=== PATIENT | female | born 1980 | race Caucasian/White ===

== ENCOUNTER → 2018-12-08 | Outpatient (CLI) | payer BC ==
--- NOTE | 2018-12-08 17:38 | Diagnostic Imaging Report ---
PROCEDURE: US Non-ob pelvis comp/trans. TECHNIQUE: Multiple realtime grayscale images were obtained of the pelvis in various projections endovaginally. Transabdominal imaging was also performed. INDICATION: Irregular periods. COMPARISON: None available. FINDINGS: The uterus measures 7.6 x 4.4 x 4.2 cm. The myometrium is normal in echogenicity without discrete mass. The endometrium measures up to 0.3 cm where visualized, and is normal in echogenicity. The right ovary measures 5.0 x 6.8 x 6.7 cm. The left ovary measures 3.0 x 3.1 x 1.1 cm. There is a large simple cyst within the right ovary measuring 5.4 x 6.1 x 6.8 cm. No left ovarian cyst or mass. Blood flow is seen in both ovaries on color doppler imaging. No suspicious adnexal mass or fluid collection. No free pelvic fluid. IMPRESSION: 1. Physiologic appearance of the endometrium. 2. Large right ovarian cyst measures up to 6.8 cm. While this may represent a dominant follicle, given the large size, followup pelvic ultrasound in six weeks is recommended to ensure resolution. Dictated by: Dictated on workstation # [id number]
--- NOTE | 2018-12-13 11:30 | Diagnostic Imaging Report ---
EXAMINATION: Digital mammogram bilateral screening with 3D tomosynthesis and CAD. INDICATION: Screening. COMPARISON: This study was compared to the prior exam of 10/23/2014. PERSONAL HISTORY: At this time, there are no current complaints. FINDINGS: In the interval since the prior exam, bilateral breast implants have been inserted. The implants appear to be intact. There is no sign of an extracapsular rupture of either implant. The fibroglandular tissue overlying each implant is heterogeneously dense. Overall, there does not appear to have been any significant change. There is no primary or secondary sign of malignancy noted. IMPRESSION: 1. There is no evidence for malignancy. 2. There has been interval insertion of bilateral breast implants. The implants appear to be intact. 3. The patient should have her annual bilateral screening mammogram on schedule in December 2019. ACR BI-RADS Category 1: Negative. Result letter will be mailed to the patient. Note: At least 10% of breast cancer is not imaged by mammography. Dictated by: Dictated on workstation # [id number]
== END ==
LOC: RAD 14:56
PROVIDERS: ATTEND Nurse Practitioner Family
DX: Z12.31 Encounter for screening mammogram for malignant neoplasm of breast (principal); N83.201 Unspecified ovarian cyst, right side
CPT/HCPCS: 76830; 76856; 77067

== ENCOUNTER 2019-02-09 13:01 | Outpatient (CLI) | payer BC ==
[~2019-02-09] VITALS: Ht 160 cm; Wt 91.2 kg
[2019-02-09 13:16] VITALS: BP 157/99
[2019-02-09 13:42] LABS: BASOPHILS # (AUTO) 0.1 10^3/uL (0.0-0.1); BASOPHILS % (AUTO) 1 % (0-10); EOSINOPHILS # (AUTO) 0.1 10^3/uL (0.0-0.3); EOSINOPHILS % (AUTO) 1 % (0-10); HEMATOCRIT 32 % (35-52); HEMOGLOBIN 10.5 G/DL (11.5-16.0); LYMPHOCYTES # (AUTO) 2.5 X 10^3 (1.0-4.0); LYMPHOCYTES % (AUTO) 28 % (12-44); MEAN CORPUSCULAR HEMOGLOBIN 26 PG (25-34); MEAN CORPUSCULAR HGB CONC 32 G/DL (32-36); MEAN CORPUSCULAR VOLUME 80 FL (80-99); MEAN PLATELET VOLUME 10.6 FL (7.4-10.4); MONOCYTES # (AUTO) 0.8 X 10^3 (0.0-1.0); MONOCYTES % (AUTO) 9 % (0-12); NEUTROPHILS # (AUTO) 5.7 X 10^3 (1.8-7.8); NEUTROPHILS % (AUTO) 62 % (42-75); PLATELET COUNT 379 10^3/uL (130-400); RED CELL DISTRIBUTION WIDTH 13.9 % (10.0-14.5); WHITE BLOOD COUNT 9.1 10^3/uL (4.3-11.0)
[2019-02-09] MEDS ORDERED: MULT-884 PO (13:44)
[2019-02-09] MEDS ORDERED: LISI-552 PO (13:44)
[2019-02-09] MEDS ORDERED: ALPR0.5T PO (13:44)
[2019-02-09] MEDS ORDERED: ESCI10TA PO (13:44)
== END 2019-02-09 13:30 | disposition home or self-care (01) ==
LOC: PREOP 13:01
PROVIDERS: ATTEND Obstetrics & Gynecology
DX: Z01.812 Encounter for preprocedural laboratory examination (principal); N83.209 Unspecified ovarian cyst, unspecified side
CPT/HCPCS: 36415; 85025; 86850; 86900; 86901; 87081

== ENCOUNTER 2019-02-16 06:16 | Day surgery (SDC) | payer BC ==
[~2019-02-16] VITALS: Ht 160 cm; Wt 91.2 kg
[2019-02-16] VITALS (10 sets, daily range): BP systolic 109–122; BP diastolic 59–81
[~2019-02-16 06:16] MED LIST: ALPR0.5T PO; BUPIVACAINE 0.25% 30 ML (SENSORCAINE) VIAL ONE; ESCI10TA PO; LISI-552 PO; MULT-884 PO
[2019-02-16] MEDS ORDERED: metroNIDAZOLE 500MG/100ML IVPB 100 ML IV ONE (06:30)
[2019-02-16] MEDS ORDERED: ceFAZolin 2 GM/50 ML NS 50 ML IV ONE (06:30)
[2019-02-16] MEDS ORDERED: proPOfol 200 MG/20 ML (DIPRIVAN) VIAL IV ONE (06:33)
[2019-02-16] MEDS ORDERED: THROMBIN 5,000 UNIT (RECOTHROM) VIAL ONE (06:33)
[2019-02-16] MEDS ORDERED: fentaNYL INJECTION 250 MCG/5 ML AMP ONE (06:34)
[2019-02-16] MEDS ORDERED: DEXAMETHASONE 10 MG/ML (DECADRON) 1 ML VIAL ONE (06:36)
[2019-02-16] MEDS ORDERED: ROCURONIUM 10 MG/ML 5 ML SYRINGE IV ONE (06:36)
[2019-02-16] MEDS ORDERED: LIDOCAINE PF 2% 5 ML (XYLOCAINE) VIAL ONE (06:36)
[2019-02-16] MEDS ORDERED: MIDAZOLAM 2 MG/2 ML (VERSED) VIAL ONE (06:36)
[2019-02-16] MEDS ORDERED: ONDANSETRON 4 MG/2 ML (SDV) Z0FRAN ONE ×2 (06:36→09:09)
[2019-02-16] MEDS: LACTATED RINGERS 1,000 ML IV PRN ×2 (06:45→07:40)
--- NOTE | 2019-02-16 06:57 | Progress Note-Pre Operative ---
Pre-Operative Progress Note H&P Reviewed The H&P was reviewed, patient examined and no changes noted. Date Seen by Provider: Feb 16, 2019 Time Seen by Provider: 06:57 Date H&P Reviewed: Feb 16, 2019 Time H&P Reviewed: 06:55 Pre-Operative Diagnosis: ALEX THORNE DO Feb 16, 2019 06:57
[2019-02-16] MEDS ORDERED: LACTATED RINGERS 1,000 ML IV SCH (07:16)
--- NOTE | 2019-02-16 07:23 | Discharge Inst-Women's Service ---
Discharge Inst-Women's Serv Depart Medication/Instructions New, Converted or Re-Newed RX: RX on Chart Problems Reviewed?: Yes Consults/Follow Up Additional Follow Up: Yes Orders/Referrals Dr. Pineda in 7-10 days and again in 8 weeks. Activity Activity: Activity as Tolerated Driving Instructions: No Driving for 1 Week NO SMOKING: NO SMOKING Nothing Inside Vagina: No Douching, No [place], No Tampons Diet Discharge Diet: No Restrictions Symptoms to Report to : Bleeding Excessive, Pain Increased, Fever Over 101 Degrees F, Vaginal Bleeding Increase, Questions/Concerns For Any Problems or Questions: Contact Your Physician Skin/Wound Care Infection Signs and Symptoms: Increased Redness, Foul Odor of Wound, Increased Drainage, Skin Itchy or Has a Rash, Increased Swelling, Temperature Above 101 F Operative Area Clean and Dry: Keep Incision Clean/Dry Stitches/Herminia/Dermabond: Dermabond, Care of Stitches Bathing Instructions: LD Rios APRN Feb 16, 2019 07:23
[2019-02-16] MEDS ORDERED: SIME80TA16 PO (07:28)
[2019-02-16] MEDS ORDERED: HYDR-34 PO (07:28)
[2019-02-16] MEDS ORDERED: DOCU100C37 PO (07:28)
[2019-02-16] MEDS ORDERED: IBUP-844 PO (07:28)
[2019-02-16] MEDS ORDERED: HYDROcodone/APAP 7.5 MG/325 MG (LORTAB, LORCET PLUS) TABLET PO PRN (07:30)
[2019-02-16] MEDS ORDERED: ANTACID SUSP 30 ML UDC (MYLANTA) PO PRN (07:30)
[2019-02-16] MEDS ORDERED: CHLORASEPTIC LOZENGE MM PRN (07:30)
[2019-02-16] MEDS ORDERED: SIMETHICONE 80 MG (MYLICON) CHEW PO PRN (07:30)
[2019-02-16] MEDS ORDERED: ONDANSETRON 4 MG/2 ML (SDV) Z0FRAN IV PRN (07:30)
[2019-02-16] MEDS ORDERED: KETOROLAC 30 MG/ML VIAL IV PRN (07:30)
[2019-02-16] MEDS ORDERED: ZOLPIDEM 5 MG (AMBIEN) TAB PO PRN (07:30)
[2019-02-16] MEDS ORDERED: DOCUSATE SODIUM 100 MG (COLACE) CAP PO PRN (07:30)
[2019-02-16] MEDS ORDERED: NEOSTIGMINE 3 MG/3 ML VIAL ONE (08:17)
[2019-02-16] MEDS ORDERED: GLYCOPYRROLATE 0.2 MG/ML (ROBINUL) 2 ML VIAL ONE (08:17)
[2019-02-16] MEDS ORDERED: HYDROmorphone 2 MG/ML VIAL (DILAUDID) ONE (08:17)
[2019-02-16] MEDS ORDERED: KETOROLAC 30 MG/ML VIAL ONE (09:09)
[2019-02-16] MEDS ORDERED: morphine INJ 10 MG/ML 1ML (SYR OR VIAL) ONE (09:10)
[2019-02-16] MEDS ORDERED: fentaNYL INJECTION 100 MCG/2 ML AMP IVP ONE (09:15)
[2019-02-16] MEDS ORDERED: KETOROLAC 30 MG/ML VIAL IVP ONE (09:15)
[2019-02-16] MEDS ORDERED: ONDANSETRON 4 MG/2 ML (SDV) Z0FRAN IVP PRN (09:15)
[2019-02-16] MEDS ORDERED: MEPERIDINE (DEMEROL) INJ 50 MG/ML IVP ONE (09:15)
[2019-02-16] MEDS ORDERED: morphine INJ 10 MG/ML 1ML (SYR OR VIAL) IVP ONE (09:15)
[2019-02-16] MEDS ORDERED: HYDROmorphone 2 MG/ML VIAL (DILAUDID) IV ONE (09:15)
--- NOTE | 2019-02-16 10:00 | NUR ---
JOE MCKEON presented to unit via BED from RECOVERY, accompanied by Rosa BARNETT RN AFTER HAVING SURGERY. REPORT RECEIVED. VS taken. S/O AT THE BEDSIDE.
--- NOTE | 2019-02-16 11:37 | NUR ---
PT RESTING IN BED, S/O SLEEPING AT THE BEDSIDE. MORE CRACKERS AND BROTH PROVIDED PER REQUEST. NO FURTHER NEEDS VOICED, CALL LIGHT WITHIN REACH.
[2019-02-16] MEDS ORDERED: SEVOFLURANE (ULTANE) 15 ML INHAL SOLN ONE (12:19)
--- NOTE | 2019-02-16 12:23 | NUR ---
RT NOTIFIED OF NEED FOR INCENTIVE SPIROMETRY.
--- NOTE | 2019-02-16 13:34 | Anesthesia-General Post-Op ---
General Patient Condition Mental Status/LOC: Same as Preop Cardiovascular: Satisfactory Nausea/Vomiting: Absent Respiratory: Satisfactory Pain: Controlled Complications: Absent Post Op Complications Complications None Follow Up Care/Instructions Patient Instructions None needed. Anesthesia/Patient Condition Patient Condition Patient is doing well, no complaints, stable vital signs, no apparent adverse anesthesia problems. No complications reported per nursing. BINH ROSARIO CRNA Feb 16, 2019 13:34
--- NOTE | 2019-02-16 13:51 | OPERATIVE REPORT ---
DATE OF SERVICE: PREOPERATIVE DIAGNOSES: 1. A 38-year-old female with abnormal uterine bleeding. 2. Chronic blood loss anemia. 3. Dyspareunia and chronic pelvic pain. 4. Elevated BMI. POSTOPERATIVE DIAGNOSES: 1. A 38-year-old female with abnormal uterine bleeding. 2. Chronic blood loss anemia. 3. Dyspareunia and chronic pelvic pain. 4. Elevated BMI. PROCEDURE: 1. Robotic-assisted total laparoscopic hysterectomy with bilateral salpingectomy. 2. Left ovarian cystectomy. SURGEON: Shree Pineda DO RN HEMODIALYSIS CHARGE: Diann Pinedo DNP ANESTHESIA: General endotracheal. ESTIMATED BLOOD LOSS: Minimal. URINE OUTPUT: 350 mL clear at the end of the procedure. FLUIDS: 1700 mL of lactated Ringer's solution. FINDINGS: Slightly hyperemic-appearing uterus with grossly normal appearing bilateral fallopian tubes. Multicystic appearing bilateral ovaries with a large cyst in the left ovary approximately 2 x 3 cm. SPECIMENS SENT: Uterus, bilateral fallopian tubes and left ovarian cyst. INDICATIONS FOR PROCEDURE: This 38-year-old female is the patient was seen in my office after alternative methods of treating chronic pelvic pain and abnormal uterine bleeding were not successful with her primary care provider. They had already attempted several much more conservative measures in the form of hormone suppression. The patient continued to have chronic blood loss anemia and iron deficiency. After reviewing the patient's history, we decided to perform a pelvic ultrasound, which was within the normal limits. There was a left ovarian cyst noted on the ultrasound. We also decided to do an endometrial biopsy due to the patient's body habitus and age, which came back negative for any type of malignancy or infection. After all of this was done, we discussed in the office conservative measures that had been taken. We discussed two options proceeding with D and C and endometrial ablation versus hysterectomy. The patient did not like the fact that the endometrial ablation could potentially have a failure rate as well as potential complications of endometrial carcinoma as she gets older if her weight does not come down. She decided that hysterectomy would likely be the best option for her. Risks of this procedure was discussed with the patient in detail including risk of bleeding, infection, damage to surrounding structures including but not limited to bowel, bladder, ureter, kidneys, possible need for reoperation, recovery timeframe, risk from anesthesia, postoperative recovery timeframe, postoperative expectations, and even . After all these things were discussed, the patient still agreed that this would be the best option for her. Consent was obtained in the preoperative area and the patient was taken to the operating room after all of her questions were answered. OPERATIVE REPORT IN DETAIL: Once in the operating room, general anesthesia was found to be adequate. She was placed in dorsal lithotomy position, prepped and draped in normal sterile fashion. A timeout was performed. A Haskins catheter was placed using sterile technique. A weighted speculum inserted to the patient's vagina. Right angle retractor was used to visualize the cervix, which was grasped at 12 o'clock position using a long Allis clamp. I then gently sound the uterine cavity; depth was found to be 8 cm. I selected an 8 cm Makenzie uterine manipulator tip and a 3 cm colpotomy ring. The Makenzie uterine manipulator tip was advanced into the uterus and the colpotomy ring advanced around the vaginal fornix. I then removed the remainder of the instruments from the patient's vagina other than the manipulator. Change of gloves was performed. I then took my attention to the abdomen where supraumbilically I infiltrated this area using 0.25% Marcaine through previously existing incision from an abdominoplasty at the umbilicus. I made an 8 mm incision with a knife and directed Veress needle through the incision until intraperitoneal placement was confirmed using saline drop test. I proceeded with insufflation using CO2 gas and opening pressure of 6 mmHg was noted. I proceeded to maximum pressure of 15 mmHg, at which point I removed the Veress needle and introduced an 8 mm blunt da Sophie camera trocar. Once this was in place, I am able to confirm intraperitoneal placement using da Sophie laparoscope. There was no evidence of damage upon my entry. I then had the patient placed in steep Trendelenburg. I am able to visualize all of my findings as described in my findings above. I placed two lateral trocars using both 8 mm trocars that are approximately 8 cm lateral to my supraumbilical trocar. Once these trocars were in place, I bring in the da Sophie robot and docked the robot in the appropriate fashion placing the vessel sealer in the left hand and monopolar librado in the right hand. I then took my place at the [employer] operative console. I performed the following dissection bilaterally starting at the uteroovarian ligament. I bipolar cauterized and transected this using the vessel sealer. I then created a window in the mesosalpinx using monopolar librado and took this laterally down the mesosalpinx amputating the fallopian tube from its surrounding blood supply. I then grasped the round ligament, bipolar cauterized and transected this using the vessel sealer. I then grasped the entire broad ligament, bipolar cauterized and transected this using the vessel sealer down to the level of the lower uterine segment, at which point I the anterior and posterior leaflets of the broad ligament. The anterior leaflet dissection was taken around the anterior vaginal fornix. The posterior leaflet of the broad ligament was taken around to the posterior vaginal fornix. This allows me to skeletonize the uterine vessels laterally, which I then bipolar cauterized and transected using the vessel sealer. I then created a window and colpotomy at the 12 o'clock position using monopolar librado and take this around the vaginal fornix amputating the cervix away from the vaginal fornix. The entire specimen was then removed from the patient's vagina. I then closed the vaginal cuff using 2-0 Vicryl suture and the lateral vaginal apices colposuspending into the uterosacral ligaments. The central portion of the vaginal cuff was closed using 2-0 V-Loc in a running fashion, after which there was no active bleeding noted from any of my dissection planes. I then took my attention to the left ovary where I make an elliptical incision around the margins of the ovarian cyst that was identified and I am able to core out the cyst from the underlying ovarian stromal tissue. There is no active bleeding noted from this dissection after it is completed. I then undocked the da Sophie robot and proceeded with the remainder of the case laparoscopically. I started by grasping this ovarian cyst and removing it through the trocar site it was sent as left ovarian cyst. I then copiously irrigated the pelvis using normal saline. There was no active bleeding noted from any of my dissection planes. I placed FloSeal hemostatic agent over all my planes of dissection to ensure postoperative hemostasis. I then had the patient taken out of steep Trendelenburg. I removed the lateral trocars under direct visualization of laparoscope. The infraumbilical trocar was left in place to introduce 10 mL of 0.25% Marcaine for postoperative pain management and to release insufflation. I then removed this trocar as well. The skin reapproximated using 4-0 Monocryl in interrupted subcuticular stitches. Dermabond was applied to incision and Band-Aids were placed over these incisions as well. The patient tolerated the procedure well and sent to recovery area in stable condition. Lap and sponge counts were correct at the end of the procedure. Instrument counts were correct as well. Two grams of Ancef, 500 mg of Flagyl given preoperatively for infection prophylaxis. Job ID: [id number] DocumentID: [id number] Dictated Date: 02/16/2019 08:58:31 Director Biostatistics Date: 02/16/2019 13:50:40 Dictated By: DO GREGORY PEDRO
--- NOTE | 2019-02-16 14:32 | NUR ---
1410: VS OBTAINED. 1425: BRANDO ALBERTO'D; SEE INTERVENTION FOR FURTHER. PT REQUESTING TO GET UP TO THE BATHROOM, ASSISTANCE PROVIDED. NO SUCCESS IN VOIDING. PT BACK TO BED. FRESH ICE PK PROVIDED FOR INCISIONS. 1432: LR HUNG AND INFUSING @ 125 ML/HR/PUMP. LUNCH TRAY DELIVERED TO ROOM. S/O AT THE BEDSIDE. NO FURTHER NEEDS VOICED.
--- NOTE | 2019-02-16 14:45 | NUR ---
RT TO PT'S BEDSIDE FOR INITIATION OF INCENTIVE SPIROMETRY.
--- NOTE | 2019-02-16 15:56 | NUR ---
PT RESTING. ROUTINE TORADOL GIVEN IVP; SEE EMAR FOR FURTHER. S/O AT THE BEDSIDE. NO NEEDS VOICED.
--- NOTE | 2019-02-16 16:10 | NUR ---
DR. MARTE TO PT'S BEDSIDE.
--- NOTE | 2019-02-16 16:16 | NUR ---
BAND AIDS REMOVED PER DR. MARTE.
--- NOTE | 2019-02-16 16:20 | NUR ---
FLUIDS INCREASED TO 999 ML/HR/PUMP PER DR. MARTE'S VERBAL ORDER.
--- NOTE | 2019-02-16 17:10 | NUR ---
PT VOIDED 250 ML. PT READY TO BE DISCHARGED HOME.
--- NOTE | 2019-02-16 17:44 | NUR ---
DISCHARGE PAPERS PROVIDED AND REVIEWED WITH PT, PT VERBALIZES UNDERSTANDING AND DENIES ANY QUESTIONS AT THIS TIME. RX'S AND FOLLOW UP APPOINTMENT CARD ALL PLACED INTO DISCHARGE FOLDER. S/O AT THE BEDSIDE. PAPER SIGNED.
--- NOTE | 2019-02-16 17:47 | NUR ---
1737: VS OBTAINED. 1739: IV DC'D; SEE INTERVENTION. 1747: PT UP TO THE BATHROOM.
--- NOTE | 2019-02-16 18:01 | NUR ---
PT DISCHARGED FROM [facility]-306 TO PERSONAL AUTO VIA W/C IN STABLE CONDITION ACC BY THIS RN AND S/O.
[2019-02-17] MEDS ORDERED: IBUPROFEN 600 MG (MOTRIN) TAB PO PRN
== END 2019-02-16 18:01 | disposition home or self-care (01) ==
LOC: SDC 06:16 → WS 10:00 → SDC 18:01
PROVIDERS: ATTEND Obstetrics & Gynecology
DX: N84.1 Polyp of cervix uteri (principal); N83.12 Corpus luteum cyst of left ovary; N85.8 Other specified noninflammatory disorders of uterus; N94.10 Unspecified dyspareunia; N93.9 Abnormal uterine and vaginal bleeding, unspecified; D50.0 Iron deficiency anemia secondary to blood loss (chronic); G89.29 Other chronic pain; I10 Essential (primary) hypertension; F41.9 Anxiety disorder, unspecified; E66.9 Obesity, unspecified; Z68.34 Body mass index [BMI] 34.0-34.9, adult; Z88.6 Allergy status to analgesic agent; Z79.899 Other long term (current) drug therapy; Z82.61 Family history of arthritis; Z82.49 Family history of ischemic heart disease and other diseases of the circulatory system
CPT/HCPCS: 58571; 58662; S2900; 36415; 84703; 86850; 86900; 86901; 88307; 94664

== ENCOUNTER 2019-09-02 11:46 | Emergency (ER) | payer BC ==
[~2019-09-02] VITALS: Ht 160 cm; Wt 95.4 kg
[~2019-09-02 11:46] MED LIST changes: -BUPIVACAINE 0.25% 30 ML (SENSORCAINE) VIAL ONE; +DOCU100C37 PO; +HYDR-34 PO; +IBUP-844 PO; +SIME80TA16 PO
[2019-09-02] MEDS ORDERED: OSEL75CA15 (12:12)
[2019-09-02] MEDS ORDERED: ALPR0.5T7 (12:12)
[2019-09-02] MEDS ORDERED: AMLO10TA7 (12:12)
[2019-09-02] MEDS ORDERED: AMOX1TAB11 (12:12)
[2019-09-02] MEDS ORDERED: PRD20T (12:12)
[2019-09-02] MEDS ORDERED: ACET/BUTAL/CAFF (FIORICET) TAB PO PRN (12:30)
--- NOTE | 2019-09-02 12:31 | ED Headache ---
General Chief Complaint: Head/Cervical Problems Stated Complaint: DIAGNOSED WITH FLU B,MIGRAINE Nursing Triage Note: TREATED FOR THE FLU ON WEDNESDAY WITH TAMIFLU. COMPLAINS OF THE WORST HEADACHE SHE HAS EVER HAD. STATES SHE CANT TAKE NSAIDS DUE TO GASTRIC BYPASS AND TYLENOL IS UPSETTING HER STOMACH. Nursing Sepsis Screen: No Definite Risk Source: patient Exam Limitations: no limitations History of Present Illness Date Seen by Provider: Sep 02, 2019 Time Seen by Provider: 12:29 Initial Comments To ER with reports of headache. She saw primary care on Wednesday of this past week with symptoms consistent with influenza, she was not swallowed but was treated empirically with Tamiflu. Starting 3 days ago she developed a headache that is frontal, worse with leaning forward. She was also given antibiotics for ear infection and she is still on those. She's getting nauseous because of the headache. She cannot take NSAIDs because of gastric bypass and Tylenol as making her nauseous. Severity/Quality: moderate Location: frontal Modifying Factors: worse with exposure to light Associated Symptoms: No confusion; nausea/vomiting, sinus infection; No stiff neck, No vision changes Allergies and Home Medications Allergies Coded Allergies: No Known Drug Allergies (Unverified , 02/09/19) Home Medications Alprazolam 0.5 Mg Tablet, 0.5 MG PO BID PRN for ANXIETY, (Reported) Butalb/Acetaminophen/Caffeine 1 Each Tablet, 1 EACH PO Q4H PRN for headache Prescribed by: OUMOU ERNST on 09/02/19 1243 Escitalopram Oxalate 10 Mg Tablet, 15 MG PO HS, (Reported) take 1 1/2 of 10mg tab Patient Home Medication List Home Medication List Reviewed: Yes Review of Systems Review of Systems Constitutional: see HPI Eyes: No Symptoms Reported Ears, Nose, Mouth, Throat: no symptoms reported Respiratory: no symptoms reported Cardiovascular: no symptoms reported Genitourinary: see HPI Skin: no symptoms reported Psychiatric/Neurological: No Symptoms Reported Past Khduwkx-Rygipu-Vzznzx Hx Patient Social History Alcohol Use: Rarely Uses Recreational Drug Use: No Smoking Status: Never a Smoker Recent Foreign Travel: No Contact w/Someone Who Travel: No Recent Infectious Disease Expo: No Seasonal Allergies Seasonal Allergies: Yes (AT TIMES) Past Medical History Surgeries: Yes (GASTRIC BYPASS, BREAST AUGMENTATION, ABDOMINOPLASTY, DXLS) Respiratory: No Cardiac: Yes Neurological: No Genitourinary: No Gastrointestinal: No Musculoskeletal: Yes (EARLY ONSET OF OSTEOPENIA) Endocrine: Yes (USED TO TAKE THYROID MED) HEENT: No Cancer: No Psychosocial: Yes Anxiety Integumentary: No Blood Disorders: No Adverse Reaction/Blood Tranf: No Family Medical History Cardiovascular disease 19 FATHER Diabetes mellitus 19 MOTHER Hypertension 19 MOTHER Thyroid disease 19 MOTHER Physical Exam Vital Signs Vital Signs - First Documented 09/02/19 12:00 Temp 37.0 Pulse 77 Resp 16 B/P (MAP) 155/99 (117) Pulse Ox 100 O2 Delivery Room Air Capillary Refill : Less Than 3 Seconds Height, Weight, BMI Height: 5'3.00" Weight: 201lbs. 0.0oz. [id number]; 37.00 BMI Method: General Appearance: WD/WN, no apparent distress HEENT: PERRL/EOMI, normal ENT inspection, TMs normal; No TM abnormal (R), No TM abnormal (L) Neck: non-tender, full range of motion Respiratory: no respiratory distress, no accessory muscle use Extremities: normal range of motion, non-tender Psychiatric: alert, oriented x 3 Crainal Nerves: normal hearing, normal speech Motor/Sensory: no motor deficit, no sensory deficit Skin: normal color, warm/dry Progress/Results/Core Measures Results/Orders My Orders Orders - OUMOU ERNST APRN Ct Head Wo (09/02/19 12:25) Butalbital/Apap/Caffeine Tab (Fioricet T (09/02/19 12:30) Medications Given in ED Current Medications Medications Dose Ordered Sig/Kings Route Start Time Stop Time Status Last Admin Dose Admin Acetaminophen/ Butalbital/ Caffeine 2 tab ONCE PRN PO 09/02/19 12:30 09/02/19 12:35 2 TAB Vital Signs/I&O 09/02/19 12:00 Temp 37.0 Pulse 77 Resp 16 B/P (MAP) 155/99 (117) Pulse Ox 100 O2 Delivery Room Air Blood Pressure Mean: 117 Diagnostic Imaging Diagonstic Imaging: CT Comments NAME: JOE MCKEON MED REC#: [id number] PT STATUS: REG ER : 1980 PHYSICIAN: OUMOU ERNST APRN ADMIT DATE: 09/02/19/ER Draft Date of Exam:09/02/19 CT HEAD WO CLINICAL INDICATION: Patient treated for flu on Wednesday with Tamiflu. Patient complains of worse headache she has ever had. EXAM: Axial CT scan of the brain performed without IV contrast. Auto Exposure Controls were utilized during the CT exam to meet ALARA standards for radiation dose reduction. COMPARISON: None. FINDINGS: There is no evidence of acute cerebral infarct, intracranial hemorrhage, or gross mass effect. The brain parenchymal volume appears appropriate for patient's age. There is normal martin-white matter distinction. There is no significant midline shift or herniation. There is no evidence of hydrocephalus. The basal cisterns are unremarkable. The skull, extracranial soft tissue, and orbits are unremarkable. The paranasal sinuses are unremarkable. Temporal bones show no significant abnormality. IMPRESSION: Unremarkable CT scan of the brain. Dictated on workstation # [id number] Dict: 09/02/19 1239 Trans: 09/02/19 1242 [facility] [id number] Interpreted by: VELASQUEZ WOODALL MD Electronically signed by: Departure Communication (Admissions) 1234-patient now tearful after I recommended a CT scan. She states this is the worst headache that she's ever had, she is upset that she'll be missing her 10-year-old's birthday constitution party due to waiting on a CT scan. Impression Primary Impression: Headache Qualified Codes: R51 - Headache Disposition: 01 HOME, SELF-CARE Condition: Stable Departure-Patient Inst. Decision time for Depature: 12:35 Referrals: KONG LAST MD (PCP/Family) Primary Care Physician Patient Instructions: Headache, Adult (DC) Add. Discharge Instructions: 1. Return to ER for any concerns 2. Follow-up with your doctor this week for recheck. Stop the Tamiflu if you have not already completed. Continue the antibiotics. All discharge instructions reviewed with patient and/or family. Voiced understanding. Scripts Butalb/Acetaminophen/Caffeine (Esgic 50-325-40 mg Tablet) 1 Each Tablet 1 EACH PO Q4H PRN for headache, #10 TAB Prov: OUMOU ERNST APRN 09/02/19 OUMOU ERNST APRN Sep 02, 2019 12:31
--- NOTE | 2019-09-02 12:42 | Diagnostic Imaging Report ---
CLINICAL INDICATION: Patient treated for flu on Wednesday with Tamiflu. Patient complains of worse headache she has ever had. EXAM: Axial CT scan of the brain performed without IV contrast. Auto Exposure Controls were utilized during the CT exam to meet ALARA standards for radiation dose reduction. COMPARISON: None. FINDINGS: There is no evidence of acute cerebral infarct, intracranial hemorrhage, or gross mass effect. The brain parenchymal volume appears appropriate for patient's age. There is normal martin-white matter distinction. There is no significant midline shift or herniation. There is no evidence of hydrocephalus. The basal cisterns are unremarkable. The skull, extracranial soft tissue, and orbits are unremarkable. The paranasal sinuses are unremarkable. Temporal bones show no significant abnormality. IMPRESSION: Unremarkable CT scan of the brain. Dictated by: Dictated on workstation # [id number]
[2019-09-02] MEDS ORDERED: BUTA-249 PO (12:43)
[2019-09-02 12:46] VITALS: BP 155/99
== END 2019-09-02 12:46 ==
LOC: EDUNIT# 11:46 → ER 11:47
DX: R51 Headache (principal); F41.9 Anxiety disorder, unspecified; Z82.49 Family history of ischemic heart disease and other diseases of the circulatory system
CPT/HCPCS: 70450

== ENCOUNTER 2019-09-22 12:41 | Outpatient (RCR) | payer BC ==
[2019-09-15] MEDS: FERRIC CARBOXYMALTOSE INJ 750 MG in NS (IVPB) 250 ML IV SCH (13:07)
[2019-09-15 13:10] VITALS: BP 137/88
[2019-09-15 15:14] VITALS: BP 137/88
[~2019-09-22] VITALS: Ht 162.6 cm; Wt 95.4 kg
[2019-09-22 12:41] VITALS: BP 151/92
[~2019-09-22 12:41] MED LIST changes: +ALPR0.5T7; +AMLO10TA7; +AMOX1TAB11; +BUTA-249 PO; +OSEL75CA15; +PRD20T
[2019-09-22] MEDS: FERRIC CARBOXYMALTOSE INJ 750 MG in NS (IVPB) 250 ML IV SCH (13:09)
== END 2019-09-22 13:40 | disposition home or self-care (01) ==
LOC: SDC 12:41
PROVIDERS: ATTEND Nurse Practitioner Family
DX: D50.8 Other iron deficiency anemias (principal)
CPT/HCPCS: 96365

== ENCOUNTER → 2020-03-27 | Outpatient (CLI) | payer BC | LOC: LABNPT 05:55 | PROVIDERS: ATTEND Family Medicine | DX: R05 Cough (principal); Z20.828 Contact with and (suspected) exposure to other viral communicable diseases | CPT/HCPCS: 87635 ==

== ENCOUNTER → 2021-05-05 | Outpatient (CLI) | payer BC ==
[~2021-05-05] MED LIST changes: +AMLO-251; -AMLO10TA7; -LISI-552 PO; +LISI20TA26 PO
--- NOTE | 2021-05-05 12:47 | Diagnostic Imaging Report ---
INDICATION: Routine screening. COMPARISON: 12/08/2018 and 10/23/2014. TECHNIQUE: 2D and 3D bilateral screening mammography was performed with CAD. FINDINGS: Bilateral subpectoral breast implants are again noted. The implant contours remain stable. Both breasts are heterogeneously dense, limiting the sensitivity of mammography. The parenchymal pattern appears stable. No mass or malignant-appearing microcalcifications are seen. The axillae are unremarkable. IMPRESSION: No mammographic features suspicious for malignancy are identified. ACR BI-RADS Category 2: Benign findings. Result letter will be mailed to the patient. Note: At least 10% of breast cancer is not imaged by mammography. Dictated by: Dictated on workstation # [id number]
== END ==
LOC: RAD 09:30
PROVIDERS: ATTEND Nurse Practitioner Family
DX: Z12.31 Encounter for screening mammogram for malignant neoplasm of breast (principal)
CPT/HCPCS: 77063; 77067

== ENCOUNTER 2021-07-06 15:45 | Emergency (ER) | payer BC ==
[~2021-07-06] VITALS: Ht 157.5 cm; Wt 81.6 kg
--- OUTSIDE RECORDS SUMMARY | 2021-07-06 15:49 | XMS REPORT | CCD ---
Author Author Antoinette Villalta Organization María Elena Villalta MD, [facility] Address [address] [place] [address] Phone Care Team Providers Care Air Conditioning Mechanic Industrial Name Role Phone María Elena Villalta PP Unavailable CCM Unavailable Summary Purpose Interface Exchange Insurance Providers Payer name Policy type / Coverage type Covered libertarian ID Effective Begin Date Effective End Date Blue Cross Blue [facility] Blue Cross/Blue [facility] [id number] Unknown Unknown Family history Father Diagnosis Age At Onset Arthritis Unknown Breast cancer Unknown Mother Diagnosis Age At Onset Hypertension Unknown Social History Social History Element Codes Description Effective Dates Marital status Unknown Ray 08/01/2018 Number of children Unknown 4 08/01/2018 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 Never smoker 08/01/2018 Alcohol history Unknown pt chooses not to answer 019 Allergies, Adverse Reactions, Alerts Substance Reaction Codes Entered Date Inactivated Date Status NSAIDS (NON-STEROIDAL ANTI-INFLAMMATORY DRUG) Unknown 08/01/2018 No Inactive Date Active Problems Condition Codes Effective Dates Condition Status Essential (primary) hypertension ICD-10: I10 ICD-9: 401.1 08/01/2018 Active Pain from breast implant ICD-10: T85.848A ICD-9: 996.79 04/29/2021 Active VACCIN FOR INFLUENZA ICD-10: Z23 ICD-9: V04.81 04/29/2021 Active Atrophy of thyroid (acquired) ICD-10: E03.4 ICD-9: 244.8 08/01/2018 Active Generalized anxiety disorder ICD-10: F41.1 ICD-9: 300.00 08/01/2018 Active Obesity due to excess calories ICD-10: E66.09 ICD-9: 278.00 01/30/2020 Active Knee pain, left ICD-10: M25.562 ICD-9: 719.46 10/15/2020 Active Weight gain ICD-10: R63.5 ICD-9: 783.1 10/27/2019 Active Other fatigue ICD-10: R53.83 ICD-9: 780.79 10/15/2020 Active Right knee pain ICD-10: m25.561 ICD-9: 719.46 10/15/2020 Active Enlarged lymph node in neck ICD-10: R59.0 ICD-9: 785.6 10/08/2020 Active Rash and other nonspecific skin eruption ICD-10: R21 ICD-9: 782.1 08/28/2019 Active Non-bullous impetigo ICD-10: L01.01 ICD-9: 684 03/21/2020 Active Sinus congestion ICD-10: R09.81 ICD-9: 478.19 03/21/2020 Active Vitamin B12 deficiency due to intestinal malabsorption ICD-10: E53.8 ICD-9: 266.2 09/12/2019 Active Anemia, unspecified ICD-10: D64.9 ICD-9: 285.9 08/17/2019 Active Acquired iron deficiency anemia due to decreased absor ption ICD-10: D50.8 ICD-9: 280.8 09/12/2019 Active Other acute sinusitis ICD-10: J01.80 ICD-9: 461.8 11/15/2018 Active Influenza ICD-10: J11.1 ICD-9: 487.1 08/28/2019 Active Rosacea, acne ICD-10: L71.9 ICD-9: 695.3 06/06/2019 Active Encounter for screening mammogram for malignant neopla sm of breast ICD-10: Z12.31 ICD-9: V76.10 12/14/2018 Active Encounter for general adult medical examination with a bnormal findings ICD-10: Z00.01 ICD-9: V70.0 08/01/2018 Active Excessive and frequent menstruation with regular cycle ICD-10: N92.0 ICD-9: 626.2 12/05/2018 Active Other allergic rhinitis ICD-10: J30.89 ICD-9: 477.8 11/15/2018 Active Medications Medication Codes Instructions Start Date Stop Date Status Fill Instructions phentermine 37.5 mg tablet RxNorm: 444123 TAKE 1 TABLET BY MOUTH EVERY MORNING AND 1/2 TABLET AT NOON 05/30/2021 06/28/2021 Active phentermine 37.5 mg tablet RxNorm: 072469 TAKE 1 TABLET BY MOUTH EVERY MORNING AND 1/2 TABLET AT NOON 04/29/2021 04/29/2021 Inactive amlodipine 10 mg tablet RxNorm: 720274 TAKE 1 TABLET BY MOUTH DAILY 03/24/2021 07/21/2021 Active 03/24/2021 4:56:15 PM alprazolam 0.5 mg tablet RxNorm: 984260 TAKE 1 TABLET B Y MOUTH TWICE DAILY NEEDED 03/24/2021 04/22/2021 Inactive 03/24/2021 4:55: 52 PM phentermine 37.5 mg tablet RxNorm: 612538 TAKE 1 TABLET BY MOUTH EVERY MORNING AND 1/2 TABLET AT NOON 03/06/2021 04/04/2021 Inactive Xanax 0.5 mg tablet RxNorm: 234327 TAKE 1 TABLET BY MOUTH TWICE DAILY NEEDED 01/28/2021 01/28/2021 Inactive phentermine 37.5 mg tablet RxNorm: 404810 TAKE 1 TABLET BY MOUTH EVERY MORNING AND 1/2 TABLET AT NOON Tablet(s) Oral 01/28/2021 01/28/2021 Inactive phentermine 37.5 mg tablet RxNorm: 188942 TAKE 1 TABLET BY MOUTH EVERY MORNING AND 1/2 TABLET AT NOON Tablet(s) Oral 12/31/2020 01/27/2021 Inactive phentermine 37.5 mg tablet RxNorm: 052587 TAKE 1 TABLET BY MOUTH EVERY MORNING AND 1/2 TABLET AT NOON Tablet(s) Oral 11/21/2020 12/20/2020 Inactive bupropion HCl SR 200 mg tablet,12 hr sustained-release RxNor m: 161578 1 Tablet(s) Oral two times a day 11/19/2020 06/17/2021 Active d ose increase bupropion HCl SR 150 mg tablet,12 hr sustained-release RxNor m: 786048 1 Tablet(s) Oral two times a day 11/13/2020 11/18/2020 Inactive Xanax 0.5 mg tablet RxNorm: 046046 TAKE 1 TABLET BY MOUTH TWICE DAILY NEEDED 11/11/2020 01/09/2021 Inactive bupropion HCl 75 mg tablet RxNorm: 275601 1 Tablet(s) Oral two times a day 10/23/2020 11/12/2020 Inactive prednisone 10 mg tablet RxNorm: 271930 Tablet(s) Oral 6,5,4,3,2,1 0 10/18/2020 11/20/2020 Inactive phentermine 37.5 mg tablet RxNorm: 747702 TAKE 1 TABLET BY MOUTH EVERY MORNING AND 1/2 TABLET AT NOON 10/18/2020 11/13/2020 Inactive Lexapro 10 mg tablet RxNorm: 936966 TAKE 1&1/2 TABLETS BY MOUTH DAILY IN THE EVENING 10/11/2020 10/25/2020 Inactive amlodipine 10 mg tablet RxNorm: 542148 TAKE 1 TABLET BY MOUTH DAILY 10/11/2020 10/11/2020 Inactive Kenalog 40 mg/mL suspension for injection RxNorm: 7038082 1 Milliliter(s) Injection 10/08/2020 10/08/2020 Inactive prednisone 20 mg tablet RxNorm: 480908 2 Tablet(s) Oral every day 0 10/08/2020 10/13/2020 Inactive amlodipine 10 mg tablet RxNorm: 215502 TAKE 1 TABLET BY MOUTH DAILY 09/12/2020 10/10/2020 Inactive phentermine 37.5 mg tablet RxNorm: 020741 TAKE 1 TABLET BY MOUTH EVERY MORNING AND 1/2 TABLET AT NOON 09/12/2020 10/11/2020 Inactive Xanax 0.5 mg tablet RxNorm: 591313 TAKE 1 TABLET BY MOUTH TWICE DAILY NEEDED 09/12/2020 11/08/2020 Inactive Xanax 0.5 mg tablet RxNorm: 883315 TAKE 1 TABLET BY MOUTH TWICE DAILY NEEDED 08/16/2020 09/11/2020 Inactive Lexapro 10 mg tablet RxNorm: 339044 TAKE 1&1/2 TABLETS BY MOUTH DAILY IN THE EVENING 08/16/2020 10/10/2020 Inactive phentermine 37.5 mg tablet RxNorm: 549981 TAKE 1 TABLET BY MOUTH EVERY MORNING AND 1/2 TABLET AT NOON 08/08/2020 09/06/2020 Inactive Xanax 0.5 mg tablet RxNorm: 097628 TAKE 1 TABLET BY MOUTH TWICE DAILY NEEDED 07/26/2020 08/24/2020 Inactive Xanax 0.5 mg tablet RxNorm: 769079 TAKE 1 TABLET BY MOUTH TWICE DAILY NEEDED 07/26/2020 07/25/2020 Inactive Xanax 0.5 mg tablet RxNorm: 719044 TAKE 1 TABLET BY MOUTH TWICE DAILY NEEDED 07/01/2020 07/25/2020 Inactive phentermine 37.5 mg tablet RxNorm: 476172 TAKE 1 TABLET BY MOUTH DAILY IN THE MORNING AND 1/2 TABLET AT NOON 07/01/2020 07/30/2020 Inactive phentermine 37.5 mg tablet RxNorm: 623094 TAKE 1 TABLET BY MOUTH DAILY IN THE MORNING AND 1/2 TABLET AT NOON 06/07/2020 06/30/2020 Inactive phentermine 37.5 mg tablet RxNorm: 417307 TAKE 1 TABLET BY MOUTH DAILY IN THE MORNING AND 1/2 TABLET AT NOON 05/10/2020 06/06/2020 Inactive doxycycline hyclate 100 mg tablet RxNorm: 3610003 TAKE O NE TABLET BY MOUTH TWICE DAILY 04/01/2020 04/07/2020 Inactive amlodipine 10 mg tablet RxNorm: 911687 TAKE 1 TABLET BY MOUTH DAILY 04/01/2020 09/11/2020 Inactive phentermine 37.5 mg tablet RxNorm: 776435 TAKE 1 TABLET BY MOUTH DAILY IN THE MORNING AND 1/2 TABLET AT NOON 04/01/2020 04/30/2020 Inactive Xanax 0.5 mg tablet RxNorm: 768346 TAKE 1 TABLET BY MOUTH TWICE DAILY NEEDED 04/01/2020 04/30/2020 Inactive prednisone 20 mg tablet RxNorm: 448339 1 Tablet(s) Oral two joyce es a day 03/26/2020 03/31/2020 Inactive Augmentin 875 mg-125 mg tablet RxNorm: 822663 1 Tablet(s) Oral two times a day 03/26/2020 11/20/2020 Inactive Augmentin 875 mg-125 mg tablet RxNorm: 886055 1 Tablet(s) Oral two times a day 03/26/2020 03/25/2020 Inactive doxycycline hyclate 100 mg tablet RxNorm: 9238046 1 Tabl et(s) Oral two times a day 03/21/2020 03/25/2020 Inactive mupirocin 2 % topical ointment RxNorm: 090349 1 Applica tion Topical two times a day 03/21/2020 03/28/2020 Inactive Xanax 0.5 mg tablet RxNorm: 598546 TAKE 1 TABLET BY MOUTH TWICE DAILY NEEDED 02/26/2020 03/26/2020 Inactive phentermine 37.5 mg tablet RxNorm: 239702 TAKE 1 TABLET BY MOUTH DAILY IN THE MORNING AND 1/2 TABLET AT NOON 02/26/2020 03/26/2020 Inactive phentermine 37.5 mg tablet RxNorm: 867864 1 Tablet(s) O ral every day 1 q am and 1/2 at noon 01/30/2020 02/25/2020 Inactive cyanocobalamin (vit B-12) 1,000 mcg/mL injection solution Rx Norm: 689166 1 Milliliter(s) Injection 01/30/2020 01/30/2020 Inactive phentermine 37.5 mg tablet RxNorm: 941331 1 Tablet(s) O ral every morning and 1/2 Tablet around 1 PM 12/20/2019 01/17/2020 Inactive Xanax 0.5 mg tablet RxNorm: 369112 1 Tablet(s) Oral two times a day as needed 12/19/2019 02/17/2020 Inactive Lexapro 10 mg tablet RxNorm: 378942 TAKE 1 1/2 TABLETS BY MOUTH DAILY IN THE EVENING 11/20/2019 02/17/2020 Inactive phentermine 37.5 mg tablet RxNorm: 625920 1 Tablet(s) O ral every morning and 1/2 Tablet around 1 PM 10/27/2019 11/25/2019 Inactive phentermine 37.5 mg tablet RxNorm: 756092 1 Tablet(s) O ral every morning and 1/2 Tablet around 1 PM 09/21/2019 10/20/2019 Inactive Xanax 0.5 mg tablet RxNorm: 150896 1 Tablet(s) Oral two times a day as needed 09/20/2019 11/18/2019 Inactive Augmentin 875 mg-125 mg tablet RxNorm: 220215 1 Tablet(s) Oral two times a day 09/12/2019 09/19/2019 Inactive cyanocobalamin (vit B-12) 1,000 mcg/mL injection solution Rx Norm: 032812 1 Milliliter(s) Injection 09/12/2019 09/12/2019 Inactive Kenalog 40 mg/mL suspension for injection RxNorm: 3531816 1 Milliliter(s) Injection 09/12/2019 09/12/2019 Inactive Augmentin 500 mg-125 mg tablet RxNorm: 132803 1 Tablet( s) Oral three times a day 08/29/2019 09/04/2019 Inactive Augmentin 500 mg-125 mg tablet RxNorm: 645455 1 Tablet( s) Oral three times a day 08/29/2019 08/28/2019 Inactive Tamiflu 75 mg capsule RxNorm: 169236 1 Capsule(s) Oral two time s a day 08/28/2019 09/02/2019 Inactive prednisone 20 mg tablet RxNorm: 610197 2 Tablet(s) Oral every day 0 08/28/2019 09/02/2019 Inactive phentermine 37.5 mg tablet RxNorm: 390198 1 Tablet(s) O ral every morning and 1/2 Tablet around 1 PM 08/24/2019 09/20/2019 Inactive amlodipine 10 mg tablet RxNorm: 162502 1 Tablet(s) Oral every day 0 08/15/2019 03/12/2020 Inactive Contrave 8 mg-90 mg tablet,extended release RxNorm: 7259751 2 Tablet(s) Oral two times a day 08/15/2019 08/27/2019 Inactive start with 1 pil l daily and increase each week by 1 pill to max 2 pills twice daily Xanax 0.5 mg tablet RxNorm: 521988 1 Tablet(s) Oral two times a day as needed 07/21/2019 08/18/2019 Inactive Xanax 0.5 mg tablet RxNorm: 156211 1 Tablet(s) Oral two times a day as needed 06/16/2019 06/15/2019 Inactive doxycycline hyclate 100 mg tablet RxNorm: 9747676 1 Tabl et(s) Oral two times a day daily x 1 wk then daily x 1 month then three days a week for another month 06/06/2019 08/05/2019 Inactive Norvasc 5 mg tablet RxNorm: 183468 1 Tablet(s) Oral every day 06/0608/14/2019 Inactive phentermine 37.5 mg tablet RxNorm: 733054 1.5 Tablet(s) Oral every day 1 tab in the morning and 1/2 tab around 1pm 06/06/2019 07/05/2019 Inactive Zithromax Z-Gianni 250 mg tablet RxNorm: 383320 Tablet(s) PO UD 201807/12/2019 Inactive progesterone micronized 200 mg capsule RxNorm: 665790 2 Capsule (s) PO daily 12/09/2018 12/08/2018 Inactive progesterone micronized 200 mg capsule RxNorm: 379740 2 Capsule (s) PO daily 12/09/2018 12/18/2018 Inactive Kenalog 40 mg/mL suspension for injection RxNorm: 5634232 1 Mill iliter(s) Inj 11/15/2018 11/15/2018 Inactive Zithromax Z-Gianni 250 mg tablet RxNorm: 055362 Tablet(s) PO UD 201803/14/2019 Inactive Lexapro 10 mg tablet RxNorm: 121881 1.5 Tablet(s) PO QPM 10/27/2018 0 10/21/2019 Inactive Lexapro 10 mg tablet RxNorm: 607792 1 Tablet(s) PO QPM 08/01/2018 Inactive biotin 5,000 mcg sublingual tablet RxNorm: 6364558 1 Tablet(s) S L daily 08/01/2018 Active lisinopril 10 mg tablet RxNorm: 767450 1 Tablet(s) PO daily 08/01/2018 Active Multiple Vitamins oral RxNorm: 99656 oral 08/01/2018 Ac tive levothyroxine 50 mcg tablet RxNorm: 762734 1 Tablet(s) PO daily 04/28/2021 Inactive Xanax 0.5 mg tablet RxNorm: 787989 1 Tablet(s) PO BID 12/19/201906/04 Inactive alendronate 35 mg tablet RxNorm: 373651 1 Tablet(s) PO QW 08/15/2019 08/14/2019 Inactive Medication Administered Medication Codes Instructions Start Date Status Kenalog 40 mg/mL suspension for injection RxNorm: 1278748 1Milli liter 10/08/2020 No longer Active cyanocobalamin (vit B-12) 1,000 mcg/mL injection solution Rx Norm: 233376 1Milliliter 01/30/2020 No longer Active Kenalog 40 mg/mL suspension for injection RxNorm: 1103705 1Milli liter 09/12/2019 No longer Active cyanocobalamin (vit B-12) 1,000 mcg/mL injection solution Rx Norm: 409507 1Milliliter 09/12/2019 No longer Active Kenalog 40 mg/mL suspension for injection RxNorm: 5171759 1Milli liter 11/15/2018 No longer Active Immunizations Vaccine Codes Date Status Influenza CVX: 150 04/29/2021 Complete Results Observation Observation Code Item Item Code Result Date S ervice Location Estrogens, Total LC [address] ESTROGENS, TOTAL 165 PG/ML Unknown Testosterone Tqg260 Testo 17.0 ng/dL 11/06/2020 [facility] Progesterone Bbv519 Prog 6.41 ng/mL 11/06/2020 [facility] C-Reactive Protein Qnt Crqnt CRP 0.1 mg/dl 2020 Unknown Sed Rate Ord21 ESR 10 mm/hr 10/08/2020 Unknown Cbc With Differential Ord2 WBC 9.70 K/ul 10/09/19 21 Unknown Cbc With Differential Ord2 RBC 4.54 M/ul 10/09/19 21 Unknown Cbc With Differential Ord2 HGB 13.7 g/dl 10/09/19 21 Unknown Cbc With Differential Ord2 HCT 41.0 % 10/09/19 21 Unknown Cbc With Differential Ord2 Neut% 60.1 % 10/09/19 21 Unknown Cbc With Differential Ord2 MCV 90.3 fl 10/09/19 21 Unknown Cbc With Differential Ord2 Lymph% 25.3 % 10/09/19 21 Unknown Cbc With Differential Ord2 [place]% 9.7 % 10/09/19 21 Unknown Cbc With Differential Ord2 MCH 30.2 pg 10/09/19 21 Unknown Cbc With Differential Ord2 MCHC 33.4 pg 10/09/19 21 Unknown Cbc With Differential Ord2 Eos% 4.3 % 10/09/19 21 Unknown Cbc With Differential Ord2 Baso% 0.6 % 10/09/19 21 Unknown Cbc With Differential Ord2 PLT 364 K/ul 10/09/19 21 Unknown Cbc With Differential Ord2 RDW 13.0 % 10/09/19 21 Unknown Cbc With Differential Ord2 Neut ABS# 5.83 K/ul 10/09/19 21 Unknown Cbc With Differential Ord2 Lymph ABS# 2.45 K/ul 021 Unknown Cbc With Differential Ord2 [place] ABS# 0.9 K/ul 10/09/19 21 Unknown Cbc With Differential Ord2 Eos ABS# 0.4 K/ul 10/09/19 21 Unknown Cbc With Differential Ord2 Baso ABS# 0.1 K/ul 10/09/19 21 Unknown Tibc Ord40 Iron 19 ug/dl 08/17/2019 Unknown Tibc Ord40 UIBC 394 ug/dL 08/17/2019 Unknown Tibc Ord40 TIBC 413 ug/dL 08/17/2019 Unknown Tibc Ord40 Fe-%Sat 4.6 % 08/17/2019 Unknown Ferritin Ord22 FERRITIN 4.9 ng/mL 08/17/2019 Unknown B12 Fui573 B12 312.00 pg/ml 08/17/2019 Unknow n Cbc With Differential Ord2 WBC 7.76 K/ul 08/15/19 20 Unknown Cbc With Differential Ord2 RBC 4.22 M/ul 08/15/19 20 Unknown Cbc With Differential Ord2 HGB 10.5 g/dl 08/15/19 20 Unknown Cbc With Differential Ord2 Neut% 53.1 % 08/15/19 20 Unknown Cbc With Differential Ord2 HCT 33.0 % 08/15/19 20 Unknown Cbc With Differential Ord2 MCV 78.2 fl 08/15/19 20 Unknown Cbc With Differential Ord2 Lymph% 28.0 % 08/15/19 20 Unknown Cbc With Differential Ord2 MCH 24.9 pg 08/15/19 20 Unknown Cbc With Differential Ord2 [place]% 16.4 % 08/15/19 20 Unknown Cbc With Differential Ord2 Eos% 1.7 % 08/15/19 20 Unknown Cbc With Differential Ord2 MCHC 31.8 pg 08/15/19 20 Unknown Cbc With Differential Ord2 PLT 416 K/ul 08/15/19 20 Unknown Cbc With Differential Ord2 Baso% 0.8 % 08/15/19 20 Unknown Cbc With Differential Ord2 Neut ABS# 4.13 K/ul 08/15/19 20 Unknown Cbc With Differential Ord2 RDW 15.7 % 08/15/19 20 Unknown Cbc With Differential Ord2 Lymph ABS# 2.17 K/ul 020 Unknown Cbc With Differential Ord2 [place] ABS# 1.3 K/ul 08/15/19 20 Unknown Cbc With Differential Ord2 Eos ABS# 0.1 K/ul 08/15/19 20 Unknown Cbc With Differential Ord2 Baso ABS# 0.1 K/ul 08/15/19 20 Unknown Free T4 Azr508 FREE T4 0.59 ng/dL 08/15/2019 Unknown Tsh Ord6 TSH (3rd IS) 1.09 uIU/mL 08/15/2019 Unkn own Comp Metabolic Nee035 NA 137 mEq/L 08/15/2019 Unkn own Comp Metabolic Wev158 K 4.1 mEq/L 08/15/2019 Unkn own Comp Metabolic Ugq292 CL 104 mEq/L 08/15/2019 Unkn own Comp Metabolic Hox971 CO2 24.0 mEq/L 08/15/2019 Unk nown Comp Metabolic Oiu087 ANION GAP 13 08/15/2019 Unkn own Comp Metabolic Nqp847 GLUCOSE 76 mg/dL 08/15/2019 Unkn own Comp Metabolic Uzw099 Creat 0.6 mg/dL 08/15/2019 Unkn own Comp Metabolic Phm476 eGFR 113 ml/min/1.73m2 020 Unknown Comp Metabolic Emu756 BUN 10 mg/dL 08/15/2019 Unkn own Comp Metabolic Bjs350 B/C Ratio 16.1 Ratio 08/15/2019 Unk nown Comp Metabolic Lqr760 CALCIUM 8.8 mg/dL 08/15/2019 Unkn own Comp Metabolic Isw512 ALK PHOS 77 U/L 08/15/2019 Unkn own Comp Metabolic Hmt991 AST(SGOT) 14 U/L 08/15/2019 Unkn own Comp Metabolic Itq970 ALT(SGPT) 11 U/L 08/15/2019 Unkn own Comp Metabolic Jkl203 BILI T 0.2 mg/dL 08/15/2019 Unkn own Comp Metabolic Znw303 ALBUMIN 4.0 g/dL 08/15/2019 Unkn own Comp Metabolic Atd649 TPRO 6.9 g/dL 08/15/2019 Unkn own Comp Metabolic Ltt492 GLOB 2.9 g/dL 08/15/2019 Unkn own Comp Metabolic Aiw936 A/G Ratio 1.4 Ratio 08/15/2019 Unkn own Comp Metabolic Mxj032 Osmo 272 mOsmo 08/15/2019 Unkn own Occult Blood Occult Blood ---x3 DateTime(Free Text in Apr) Unknown Procedures Procedure Codes Date IIV4 VACC NO PRSV 0.5 ML IM CPT-4: 00289 04/29/2021 IMMUNIZATION ADMIN CPT-4: 67452 04/29/2021 IIV4 VACC NO PRSV 0.5 ML IM CPT-4: 02904 04/29/2021 TRIAMCINOLONE ACET INJ NOS 10 mg CPT-4: J3301 021 THER/PROPH/DIAG INJ SC/IM CPT-4: 02427 10/08/2020 VITAMIN B12 INJECTION 1000 mcg CPT-4: J3420 0 THER/PROPH/DIAG INJ SC/IM CPT-4: 18515 01/30/2020 OCCULT BLOOD FECES CPT-4: 13717 09/15/2019 TRIAMCINOLONE ACET INJ NOS 10 mg CPT-4: J3301 020 VITAMIN B12 INJECTION 1000 mcg CPT-4: J3420 0 THER/PROPH/DIAG INJ SC/IM CPT-4: 93973 09/12/2019 TRIAMCINOLONE ACET INJ NOS 10 mg CPT-4: J3301 019 Vital Signs Date Vital 04/29/2021 Blood Pressure 1: 124/88 Code: 8480-6 BMI: 39.9 Code: 93552-4 Heart Rate 1: 87 bpm Height: 5'3" Code: 8302-2 SpO2: 97% Temperature: 3 6.4 (C) / 97.5 (F) Weight: 225 lbs Code: 56378-8 02/03/2021 Blood Pressure 1: 134/80 Code: 8480-6 BMI: 40.6 Code: 90423-9 Heart Rate 1: 81 bpm Height: 5'3" Code: 8302-2 SpO2: 98% Temperature: 3 5.7 (C) / 96.3 (F) Weight: 229 lbs Code: 04695-6 12/31/2020 Blood Pressure 1: 138/86 Code: 8480-6 BMI: 40.9 Code: 73903-8 Heart Rate 1: 78 bpm Height: 5'3" Code: 8302-2 SpO2: 98% Weight: 231 lb s Code: 81584-5 11/21/2020 Blood Pressure 1: 132/84 Code: 8480-6 BMI: 40.6 Code: 10674-0 Heart Rate 1: 78 bpm Height: 5'3" Code: 8302-2 SpO2: 96% Weight: 229 lb s 6 oz Code: 04264-2 10/23/2020 Blood Pressure 1: 140/86 Code: 8480-6 BMI: 41.6 Code: 19569-2 Heart Rate 1: 78 bpm Height: 5'3" Code: 8302-2 Respiratory Rate: 18 bpm SpO2: 99% Temperature: 36.3 (C) / 97.4 (F) Weight: 235 lbs Code: 28793-7 10/15/2020 Height: Code: 8302-2 Weight: Code: 294 63-10/08/2020 Heart Rate 1: 82 bpm Height: Code: 8302-2 Weigh t: Code: 30218-3 03/21/2020 Blood Pressure 1: 120/74 Code: 8480-6 BMI: 40.4 Code: 49814-7 Heart Rate 1: 74 bpm Height: 5'3" Code: 8302-2 SpO2: 98% Temperature: 3 6.5 (C) / 97.7 (F) Weight: 228 lbs Code: 22982-0 01/30/2020 Blood Pressure 1: 132/84 Code: 8480-6 BMI: 39.9 Code: 68286-1 Heart Rate 1: 65 bpm Height: 5'3" Code: 8302-2 SpO2: 99% Temperature: 3 6.6 (C) / 97.8 (F) Weight: 225 lbs Code: 53701-6 12/20/2019 Blood Pressure 1: 122/74 Code: 8480-6 BMI: 39.0 Code: 27910-2 Heart Rate 1: 74 bpm Height: 5'3" Code: 8302-2 Respiratory Rate: 16 bpm SpO2: 98% Weight: 220 lbs Code: 18362-9 10/27/2019 Weight: 217 lbs Code: 18980 -7 09/12/2019 Blood Pressure 1: 134/88 Code: 8480-6 BMI: 38.8 Code: 05630-4 Heart Rate 1: 76 bpm Height: 5'3" Code: 8302-2 SpO2: 96% Temperature: 3 6.9 (C) / 98.5 (F) Weight: 219 lbs Code: 50874-0 08/28/2019 Heart Rate 1: 84 bpm Height: Code: 8302-2 SpO2: 98% Weight: Code: 89402-4 08/15/2019 Blood Pressure 1: 142/88 Code: 8480-6 BMI: 37.7 Code: 88646-9 Heart Rate 1: 82 bpm Height: 5'3" Code: 8302-2 SpO2: 99% Weight: 213 lb s Code: 23465-9 06/06/2019 Blood Pressure 1: 166/100 Code: 8480-6 B lood Pressure 1: 144/90 Code: 8480-6 BMI: 36.1 Code: 41326-7 Heart Rate 1: 68 bpm Height: 5'3" Code: 8302-2 Height: Code: 8302-2 SpO2: 98% Weight: Code: 35276-3 Weight: 204 lbs Code: 50811-9 12/05/2018 Blood Pressure 1: 154/90 Code: 8480-6 BMI: 34.4 Code: 42353-9 Heart Rate 1: 86 bpm Height: 5'3" Code: 8302-2 SpO2: 98% Weight: 194 lb s Code: 80520-8 11/15/2018 Blood Pressure 1: 128/68 Code: 8480-6 BMI: 34.4 Code: 00206-7 Heart Rate 1: 84 bpm Height: 5'3" Code: 8302-2 SpO2: 98% Temperature: 3 7.2 (C) / 99.0 (F) Weight: 194 lbs Code: 00133-2 10/27/2018 Blood Pressure 1: 140/80 Code: 8480-6 BMI: 34.7 Code: 78556-6 Heart Rate 1: 86 bpm Height: 5'3" Code: 8302-2 SpO2: 97% Weight: 196 lb s Code: 89327-1 08/01/2018 Blood Pressure 1: 116/80 Code: 8480-6 BMI: 33.1 Code: 55462-5 Heart Rate 1: 82 bpm Height: 5'3" Code: 8302-2 SpO2: 99% Weight: 187 lb s Code: 15174-3 Functional Status No Functional Status data Reason For Visit Reason For Visit Effective Dates Notes weight gain/obesity 04/29/2021 hypertension 02/03/2021 rash 10/23/2020 knee pain 10/15/2020 rash 10/08/2020 sores 03/21/2020 hypertension 01/30/2020 Weight follow up 12/20/2019 hypertension 09/12/2019 sinus congestion 08/28/2019 hypertension 08/15/2019 acne vulgaris 06/06/2019 vaginal bleeding 12/05/2018 cough 11/15/2018 depression 10/27/2018 hypertension 08/01/2018 Encounters Encounter Performer Location Codes Date ([id number]) [id number] EST. PATIENT, LEVEL III Diagnosis: Essential (primary) hypertension[ICD10: I10] Diagnosis: Pain from breast implant[ICD10: T85.848A] Diagnosis: VACCIN FOR INFLUENZA[ICD10: Z23] Re mcdonald MD, [facility] CPT-4: 57341 04/29/2021 ([id number]) 87477 EST. PATIENT, LEVEL IV Diagnosis: Essential (primary) hypertension[ICD10: I10] Diagnosis: Atrophy of thyroid (acquired)[ICD10: E03.4] Diagnosis: Generalized anxiety disorder[ICD10: F41.1] María Elena Villalta MD, [facility] CPT-4: 66782 02/03/2021 ([id number]) Miscellaneous no charge Diagnosis: Obesity due to excess calories[ICD10: E66.09] Kala Villalta MD, [facility] CPT-4: 28038 12/31/2020 ([id number]) Miscellaneous no charge Diagnosis: Obesity due to excess calories[ICD10: E66.09] María Elena Villalta MD, [facility] CPT-4: 82747 11/21/2020 ([id number]) 52034 EST. PATIENT, LEVEL IV Diagnosis: Essential (primary) hypertension[ICD10: I10] Diagnosis: Obesity due to excess calories[ICD10: E66.09] Diagnosis: Weight gain[ICD10: R63.5] Diagnosis: Knee pain, left[ICD10: M25.562] María Elena elder MD, [facility] CPT-4: 94476 10/23/2020 [id number] EST. PATIENT, LEVEL IV Diagnosis: Other fatigue[ICD10: R53.83] Diagnosis: Right knee pain[ICD10: m25.561] Diagnosis: Knee pain, left[ICD10: M25.562] Kala Villalta MD , [facility] CPT-4: 01674 10/15/2020 [id number] EST. PATIENT, LEVEL IV Diagnosis: Rash and other nonspecific skin eruption[ICD10: R21] Diagnosis: Enlarged lymph node in neck[ICD10: R59.0] Kala Villalta MD, [facility] CPT-4: 55780 10/08/2020 ([id number]) 75465 EST. PATIENT, LEVEL III Diagnosis: Non-bullous impetigo[ICD10: L01.01] Diagnosis: Sinus congestion[ICD10: R09.81] Re elder MD, [facility] CPT-4: 58986 03/21/2020 ([id number]) 11386 EST. PATIENT, LEVEL III Diagnosis: Essential (primary) hypertension[ICD10: I10] Diagnosis: Vitamin B12 deficiency due to intestinal malabsorption[ICD10: E53.8] Diagnosis: Obesity due to excess calories[ICD10: E66.09] Re Villalta MD, [facility] CPT-4: 31213 01/30/2020 ([id number]) 09146 EST. PATIENT, LEVEL I Diagnosis: Weight gain[ICD10: R63.5] María Elena Villalta MD, [facility] CPT- 4: 44159 12/20/2019 ([id number]) Miscellaneous no charge Diagnosis: Weight gain[ICD10: R63.5] María Elena Villalta MD, [facility] CPT- 4: 60062 10/27/2019 ([id number]) 93774 EST. PATIENT, LEVEL IV Diagnosis: Essential (primary) hypertension[ICD10: I10] Diagnosis: Other acute sinusitis[ICD10: J01.80] Diagnosis: Acquired iron deficiency anemia due to decreased absorption[ICD10: D50.8] Diagnosis: Vitamin B12 deficiency due to intestinal malabsorption[ICD10: E53.8] Re Villalta MD, [facility] CPT-4: 47517 09/12/2019 [id number] EST. PATIENT, LEVEL III Diagnosis: Influenza[ICD10: J11.1] Diagnosis: Rash[ICD10: R21] Kala Villalta MD, [facility] CPT-4: 39692 08/28/2019 ([id number]) [id number] EST. PATIENT, LEVEL IV Diagnosis: Essential (primary) hypertension[ICD10: I10] Diagnosis: Atrophy of thyroid (acquired)[ICD10: E03.4] Diagnosis: Generalized anxiety disorder[ICD10: F41.1] Re Villalta MD, [facility] CPT-4: 00644 08/15/2019 ([id number]) 24943 EST. PATIENT, LEVEL IV Diagnosis: Atrophy of thyroid (acquired)[ICD10: E03.4] Diagnosis: Generalized anxiety disorder[ICD10: F41.1] Diagnosis: Rosacea, acne[ICD10: L71.9] Diagnosis: Essential (primary) hypertension[ICD10: I10] María Elena Villalta MD, [facility] CPT-4: 12828 06/06/2019 ([id number]) [id number] EST. PATIENT, LEVEL IV Diagnosis: Excessive and frequent menstruation with regular cycle[ICD10: N92.0] Re Villalta MD, [facility] CPT-4: 36527 12/05/2018 [id number] EST. PATIENT, LEVEL III Diagnosis: Other acute sinusitis[ICD10: J01.80] Diagnosis: Other allergic rhinitis[ICD10: J30.89] Kala Andino MD, [facility] CPT-4: 18709 11/15/2018 ([id number]) 97764 EST. PATIENT, LEVEL III Diagnosis: Essential (primary) hypertension[ICD10: I10] Diagnosis: Generalized anxiety disorder[ICD10: F41.1] María Elena Villalta MD, [facility] CPT-4: 44377 10/27/2018 ([id number]) PREV VISIT NEW AGE 40-64 Diagnosis: Encounter for general adult medical examination with abnormal findings[ICD10: Z00.01] María Elena Villalta MD, [facility] CPT-4: 21194 08/01/2018 Plan of Care Planned Activity Notes Codes Status Date Visit Plan: Hypertension - well controll ed - continue with current medications, continue with no added salt diet. Pt has been encouraged to exercise daily. The pt has been advised to call the office if there are any acute concerns about change in blood pressure readings at home. Chronic breast implant pain -patient is interested in removal -recommend Dr Chris or Dr Hart at [facility]- patient to call for consultation - she is also due for mammogram- orders sent to 04/29/2021 Appointment: Re Palmer WPtel: [phone] [phone] (15 min) Moderate 04/29/2021 Patient Education: Patient Medication Summary Completed 04/29/2021 Visit Plan: Hypertension - well controll ed - continue with current medications, continue with no added salt diet. Pt has been encouraged to exercise daily. The pt has been advised to call the office if there are any acute concerns about change in blood pressure readings at home. Obesity - chronic issue with this patient. The pt has been counseled about diet changes, calorie restriction, and need to exercise. Pt will RTC in one month for weight check. Depression and anxiety - continue with bupropion at current dose. 02/03/2021 Appointment: María Elena Villalta WPtel: [phone] [facility] (15 min) Moderate 02/03/2021 Patient Education: Patient Medication Summary Completed 02/03/2021 Patient Education: Patient Medication Summary Completed 01/28/2021 Appointment: Nurse Visit 12/31/2020 Patient Education: Patient Medication Summary Completed 12/31/2020 Appointment: Nurse Visit 11/21/2020 Patient Education: Patient Medication Summary Completed 11/21/2020 Patient Education: Obesity Completed 0 11/21/2020 Appointment: María Elena Villalta WPtel: [phone] [facility] (15 min) Moderate 10/30/2020 Visit Plan: Hypertension - well controll ed - continue with current medications, continue with no added salt diet. Pt has been encouraged to exercise daily. The pt has been advised to call the office if there are any acute concerns about change in blood pressure readings at home. Obesity - chronic issue with this patient. The pt has been counseled about diet changes, calorie restriction, and need to exercise. Pt will RTC in one month for weight check. Pt reports that she had hormone labs done with the [facility] - we have some labs, but they do not show estrogen/fsh/lh, progesterone - we are going to re-request labs and if they have not been done, we will check hormones. Depression/anxiety - decrease lexapro to 1/2 tab x 3 days then stop and start on wellbutrin voltaren gel 1% apply to knees three times a day 10/23/2020 [facility]ment: [phone] (15 min) Moderate 10/23/2020 Patient Education: Patient Medication Summary Completed 10/23/2020 Patient Education: Obesity Completed 0 10/23/2020 Visit Plan: Ongoing fatigue and joint pa in - pt is to keep her appointment with Rheumatology - pt is to monitor symptoms and notify clinic if symptoms do not improve, if they worsen, or with any changes, questions, or concerns. 10/15/2020 Appointment: Kala Hair WPtel: [facility] (30 min) Complex 10/15/2020 Patient Education: Patient Medication Summary Completed 10/15/2020 Visit Plan: Rash - will send RX - pt is to monitor symptoms and notify clinic if symptoms do not improve, if they worsen, or with any changes, questions or concerns. Enlarged lymph nodes - will check labs - return to clinic in 1 week to monitor - will consider US if indicated 10/08/2020 Appointment: Kala Hair WPtel: [facility] (30 min) Complex 10/08/2020 Patient Education: Patient Medication Summary Completed 10/08/2020 Visit Plan: Impetigo - rx for abx provid ed and instructed on use- call if rash does not resolve Sinus congestion- RX given to patient, sinus rinses also recommended. Call if symptoms do not show improvement. 03/21/2020 Appointment: Re Palmer WPtel: [id number] [place] (15 min) Moderate 03/21/2020 Patient Education: Patient Medication Summary Completed 03/21/2020 Visit Plan: Hypertension - well controll ed - continue with current medications, continue with no added salt diet. Pt has been encouraged to exercise daily. The pt has been advised to call the office if there are any acute concerns about change in blood pressure readings at home. Obesity - chronic issue with this patient. The pt has been counseled about diet changes, calorie restriction, and need to exercise. Pt will RTC in one month for weight check. 01/30/2020 Appointment: Re Palmer WPtel: [facility] [place] [phone] (15 min) Moderate 01/30/2020 Patient Education: Patient Medication Summary Completed 01/30/2020 Visit Plan: Weight gain -okay for refill of phentermine 12/20/2019 Appointment: Nurse Visit 12/20/2019 Patient Education: Patient Medication Summary Completed 12/20/2019 Appointment: Nurse Visit 10/27/2019 Patient Education: Patient Medication Summary Completed 10/27/2019 Appointment: Lab Draw 09/15/2019 Patient Education: Patient Medication Summary Completed 09/15/2019 Appointment: Re Palmer WPtel: [phone] (15 min) Moderate 09/12/2019 Patient Education: Patient Medication Summary Completed 09/12/2019 Visit Plan: Influenza - pt started on ta miflu - pt to start on anti- inflammatories, tylenol and monitor symptoms. Pt to call if not improving. Pt to alert any close contacts as to illness. Rash - pt is to stay off contrave - pt is to notify clinic if symptoms do not improve, if they worsen, or with any changes, questions, or concerns. 08/28/2019 Appointment: Kala Hair WPtel: [facility] (15 min) Moderate 08/28/2019 Patient Education: Patient Medication Summary Completed 08/28/2019 Patient Education: Patient Medication Summary Completed 08/17/2019 Visit Plan: Hypertension - uncontrolled - the patient's medications have been modified as documented in the visit note. The patient has been counseled to cut back on salt in diet for a no added salt diet, low fat diet, start an exercise program with low weight bearing exercises and higher aerobic activity for heart health. The patient is to check blood pressure readings as an outpatient and either fax, call, or email the readings to the office next week for practitioner to review. The pt is to call for acute concerns. Hypothyroidism - pt with chronic hypothyroidism, continue with current medication, will monitor pt for signs or symptoms of lack of adequate supplementation. Pt is to continue with current dose of medication unless directed otherwise. Check labs at regular intervals q 3 months or q 6 months based on previous levels of control. Chronic Depression and anxiety - the pt has symptoms of chronic anxiety and depression that have been fairly well controlled since the last office visit. The pt has ex pected periods of exacerbation with abatement of the symptoms with change in situational exposure. No change in current medications. Obesity - chronic issue with this patient. The pt has been counseled about diet changes, calorie restriction, and need to exercise. Pt will RTC in one month for weight check. 08/15/2019 Appointment: [facility] Palmer [facility]el: [phone] (30 min) Complex 08/15/2019 Patient Education: Patient Medication Summary Completed 08/15/2019 Appointment: María [facility]el[phone] (15 min) Moderate 07/10/2019 Visit Plan: Hypothyroidism - pt with chr onic hypothyroidism, continue with current medication, will monitor pt for signs or symptoms of lack of adequate supplementation. Pt is to continue with current dose of medication unless directed otherwise. Check labs at regular intervals q 3 months or q 6 months based on previous levels of control. Hypertension - uncontrolled - the patient's medications have been modified as documented in the visit note. The patient has been counseled to cut back on salt in diet for a no added salt diet, low fat diet, start an exercise program with low weight bearing exercises and higher aerobic activity for heart health. The patient is to check blood pressure readings as an outpatient and either fax, call, or email the readings to the office next week for practitioner to review. The pt is to call for acute concerns. Start on amlodipine 5mg daily. Chronic Depression and anxiety - the pt has symptoms of chronic anxiety and depression that have been fairly well controlled since the last office visit. The pt has expected periods of exacerbation with abatement of the symptoms with change in situational exposure. No change in current medications. Rosacea - rx for doxycycline 100mg bid x 1 wk and then daily x 1 month then three days weekly x 1 month. 06/06/2019 Patient Education: Patient Medication Summary Completed 06/06/2019 Appointment: María Elena Villalta WPtel: [facility]6 [facility]66[facility] (15 min) Moderate 02/07/2019 Patient Education: Patient Medication Summary Completed 12/14/2018 Appointment: Re Palmer WPtel: [facility]8 [phone] [place] [address] (15 min) Moderate 12/05/2018 Patient Education: Patient Medication Summary Completed 12/05/2018 Visit Plan: Sinusitis - Pt has acute inf ection - pain in face, maxillary region, Pt informed to use decongestant, RX given to patient, sinus rinses also recommended. Call if symptoms do not show improvement. Allergies - chronic - recommended pt to use allergy medication as prescribed. Pt has been counseled as to the appropriate use of the medication. Pt to call if allergy symptoms are not controlled with the medication. If using nasal spray, instructions as follows: Nasal spray- use twice daily, one spray per nostril twice daily, after 30 minutes, rinse out nose with saline spray.. Use opposite hand per nostril to spray in the nasal steroid allergy spray. 11/15/2018 Appointment: Kala Hair WPtel: [facility]3 [facility] (30 min) Complex 11/15/2018 Patient Education: Patient Medication Summary Completed 11/15/2018 Visit Plan: Hypertension - well controll ed - continue with current medications, continue with no added salt diet. Pt has been encouraged to exercise daily. The pt has been advised to call the office if there are any acute concerns about change in blood pressure readings at home. Chronic Depression and anxiety - the pt has symptoms of chronic anxiety and depression that have not been as well controlled as desired and we have decided to increase the lexapro a little bit up to 15mg daily - pt to call to let us know if the symptoms are not as well controlled as she would like and we can consider increasing the dose to 20mg to attempt greater control. The pt has expected periods of exacerbation with abatement of the symptoms with change in situational exposure. No change in current medications. 10/27/2018 Appointment: María Elena Villalta WPtel: [phone] [facility] (15 min) Moderate 10/27/2018 Patient Education: Patient Medication Summary Completed 10/27/2018 Appointment: María Elena Villalta WPtel: [phone] [facility] (15 min) Moderate 10/12/2018 Appointment: María Elena Villalta WPtel: [address] [facility] (15 min) Moderate 09/26/2018 Visit Plan: Well Adult - pt was counsele d about diet, exercise, and encouraged to follow a heart healthy diet and increase activity level. The patient was instructed to RTC yearly for well adult exams and PRN for acute illnesses. The pt was also instructed to have yearly labs for check of cholesterol, thyroid, chem panel, CBC, and renal functioning. Hypertension - well controlled - continue with current medications, continue with no added salt diet. Pt has been encouraged to exercise daily. The pt has been advised to call the office if there are any acute concerns about change in blood pressure readings at home. Hypothyroidism - pt with chronic hypothyroidism, continue with current medication, will monitor pt to signs or symptoms of lack of adequate supplementation. Pt is to continue with current dose of medication unless directed otherwise. Check labs at regular intervals q 3 months or q 6 months based on previous levels of control. Anxiety - the patient has uncontrolled anxiety and will benefit from an SSRI on a daily basis to attempt control of the symptoms of anxiety (tachycardia, overwhelming sensations, stress, insomnia, etc). I also believe that the patient will benefit from very low dose of prn be nzodiazepine. Pt is aware of the risks and benefits of treatment with the above medications. RTC in 6 weeks for assessment 08/01/2018 Appointment: Abhishek Villaltay WPtel: [facility] [place] New Patient 08/01/2018 Patient Education: Patient Medication Summary Completed 08/01/2018 Instructions Comment [facility] [phone] Hart Mammogram Refill phentermine Flu vaccine . Hypertension - well controlled - harjit nue with current medications, continue with no added salt diet. Pt has been encouraged to exercise daily. The pt has been advised to call the office if there are any acute concerns about change in blood pressure readings at home. Chronic breast implant pain -patient is interested in removal -recommend Dr Chris or Dr Hart at [facility]- patient to call for consultation - she is also due for mammogram- orders sent to . Hypertension - well controlled - harjit nue with current medications, continue with no added salt diet. Pt has been encouraged to exercise daily. The pt has been advised to call the office if there are any acute concerns about change in blood pressure readings at home. Obesity - chronic issue with this patient. The pt has been counseled about diet changes, calorie restriction, and need to exercise. Pt will RTC in one month for weight check. Depression and anxiety - continue with bupropion at current dose. decrease lexapro to 1/2 tab x 3 days the n stop and start on wellbutrin voltaren gel 1% apply to knees three times a day . Hypertension - well controlled - harjit nue with current medications, continue with no added salt diet. Pt has been encouraged to exercise daily. The pt has been advised to call the office if there are any acute concerns about change in blood pressure readings at home. Obesity - chronic issue with this patient. The pt has been counseled about diet changes, calorie restriction, and need to exercise. Pt will RTC in one month for weight check. Pt reports that she had hormone labs done with the [facility] - we have some labs, but they do not show estrogen/fsh/lh, progesterone - we are going to re-request labs and if they have not been done, we will check hormones. Depression/anxiety - decrease lexapro to 1/2 tab x 3 days then stop and start on wellbutrin voltaren gel 1% apply to knees three times a day . Ongoing fatigue and joint pain - pt is to keep her appointment with Rheumatology - pt is to monitor symptoms and notify clinic if symptoms do not improve, if they worsen, or with any changes, questions, or concerns. . Rash - will send RX - pt is to monito r symptoms and notify clinic if symptoms do not improve, if they worsen, or with any changes, questions or concerns. Enlarged lymph nodes - will check labs - return to clinic in 1 week to monitor - will consider US if indicated . Impetigo - rx for abx provided and ins tructed on use- call if rash does not resolve Sinus congestion- RX given to patient, sinus rinses also recommended. Call if symptoms do not show improvement. . Hypertension - well controlled - harjit nue with current medications, continue with no added salt diet. Pt has been encouraged to exercise daily. The pt has been advised to call the office if there are any acute concerns about change in blood pressure readings at home. Obesity - chronic issue with this patient. The pt has been counseled about diet changes, calorie restriction, and need to exercise. Pt will RTC in one month for weight check. . Weight gain -okay for refill of phente rmine . Influenza - pt started on tamiflu - pt to start on anti-inflammatories, tylenol and monitor symptoms. Pt to call if not improving. Pt to alert any close contacts as to illness. Rash - pt is to stay off contrave - pt is to notify clinic if symptoms do not improve, if they worsen, or with any changes, questions, or concerns. INCREASE AMLODIPINE TO 10MG DAILY CONTRAVE -THIS IS FOR WEIGHT LOSS- START WITH 1 PILL DAILY X 1 WEEK THEN YOU CAN INCREASE TO 1 PILL TWICE DAILY X 1 WEEK. AFTER THAT, YOU CAN DO GO 2 PILLS IN THE MORNING AND 1 IN THE EVENING X 1 WEEK. THEN, 2 PILLS TWICE DAILY THEREAFTER . Hypertension - uncontrolled - the alanna ent's medications have been modified as documented in the visit note. The patient has been counseled to cut back on salt in diet for a no added salt diet, low fat diet, start an exercise program with low weight bearing exercises and higher aerobic activity for heart health. The patient is to check blood pressure readings as an outpatient and either fax, call, or email the readings to the office next week for practitioner to review. The pt is to call for acute concerns. Hypothyroidism - pt with chronic hypothyroidism, continue with current medication, will monitor pt for signs or symptoms of lack of adequate supplementation. Pt is to continue with current dose of medication unless directed otherwise. Check labs at regular intervals q 3 months or q 6 months based on previous levels of control. Chronic Depression and anxiety - the pt has symptoms of chronic anxiety and depression that have been fairly well controlled since the last office visit. The pt has expected periods of exacerbation with abatement of the symptoms with change in situational exposure. No change in current medications. Obesity - chronic issue with this patient. The pt has been counseled about diet changes, calorie restriction, and need to exercise. Pt will RTC in one month for weight check. extended release melatonin . Hypothyroidism - pt with chronic hypot hyroidism, continue with current medication, will monitor pt for signs or symptoms of lack of adequate supplementation. Pt is to continue with current dose of medication unless directed otherwise. Check labs at regular intervals q 3 months or q 6 months based on previous levels of control. Hypertension - uncontrolled - the patient's medications have been modified as documented in the visit note. The patient has been counseled to cut back on salt in diet for a no added salt diet, low fat diet, start an exercise program with low weight bearing exercises and higher aerobic activity for heart health. The patient is to check blood pressure readings as an outpatient and either fax, call, or email the readings to the office next week for practitioner to review. The pt is to call for acute concerns. Start on amlodipine 5mg daily. Chronic Depression and anxiety - the pt has symptoms of chronic anxiety and depression that have been fairly well controlled since the last office visit. The pt has expected periods of exacerbation with abatement of the symptoms with change in situational exposure. No change in current medications. Rosacea - rx for doxycycline 100mg bid x 1 wk and then daily x 1 month then three days weekly x 1 month. . Sinusitis - Pt has acute infection - p ain in face, maxillary region, Pt informed to use decongestant, RX given to patient, sinus rinses also recommended. Call if symptoms do not show improvement. Allergies - chronic - recommended pt to use allergy medication as prescribed. Pt has been counseled as to the appropriate use of the medication. Pt to call if allergy symptoms are not controlled with the medication. If using nasal spray, instructions as follows: Nasal spray- use twice daily, one spray per nostril twice daily, after 30 minutes, rinse out nose with saline spray.. Use opposite hand per nostril to spray in the nasal steroid allergy spray. extended release melatonin . Hypertension - well controlled - harjit nue with current medications, continue with no added salt diet. Pt has been encouraged to exercise daily. The pt has been advised to call the office if there are any acute concerns about change in blood pressure readings at home. Chronic Depression and anxiety - the pt has symptoms of chronic anxiety and depression that have not been as well controlled as desired and we have decided to increase the lexapro a little bit up to 15mg daily - pt to call to let us know if the symptoms are not as well controlled as she would like and we can consider increasing the dose to 20mg to attempt greater control. The pt has expected periods of exacerbation with abatement of the symptoms with change in situational exposure. No change in current medications. . Well Adult - pt was counseled about di et, exercise, and encouraged to follow a heart healthy diet and increase activity level. The patient was instructed to RTC yearly for well adult exams and PRN for acute illnesses. The pt was also instructed to have yearly labs for check of cholesterol, thyroid, chem panel, CBC, and renal functioning. Hypertension - well controlled - continue with current medications, continue with no added salt diet. Pt has been encouraged to exercise daily. The pt has been advised to call the office if there are any acute concerns about change in blood pressure readings at home. Hypothyroidism - pt with chronic hypothyroidism, continue with current medication, will monitor pt to signs or symptoms of lack of adequate supplementation. Pt is to continue with current dose of medication unless directed otherwise. Check labs at regular intervals q 3 months or q 6 months based on previous levels of control. Anxiety - the patient has uncontrolled anxiety and will benefit from an SSRI on a daily basis to attempt control of the symptoms of anxiety (tachycardia, overwhelming sensations, stress, insomnia, etc). I also believe that the patient will benefit from very low dose of prn benzodiazepine. Pt is aware of the risks and benefits of treatment with the above medications. RTC in 6 weeks for assessment Medical Equipment No Medical Equipment data Health Concerns Section Health Concerns data not found Goals Section Goals data not found Interventions Section Interventions data not found Health Status Evaluations/Outcomes Section Health Status Evaluations/Outcomes data not found Advance Directives No Advance Directive data
--- OUTSIDE RECORDS SUMMARY | 2021-07-06 15:49 | XMS REPORT | CCD ---
Author Author Antoinette Villalta Organization María Elena Villalta MD, [facility] Address [address] [place] [address] Phone Care Team Providers Care Automotive Teacher Name Role Phone María Elena Villalta PP Unavailable CCM Unavailable Summary Purpose Interface Exchange Insurance Providers Payer name Policy type / Coverage type Covered republican ID Effective Begin Date Effective End Date Blue Cross Blue [facility] Blue Cross/Blue 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[address]: 579450499 Never smoker 08/01/2018 Alcohol history Unknown pt [...] Fill Instructions phentermine 37.5 mg tablet RxNorm: 452692 TAKE 1 TABLET BY MOUTH EVERY MORNING AND 1/2 TABLET AT NOON 04/29/2021 05/28/2021 Active amlodipine 10 mg tablet RxNorm: 665001 TAKE 1 TABLET BY MOUTH DAILY 03/24/2021 07/21/2021 Active 03/24/2021 4:56:15 PM alprazolam 0.5 mg tablet RxNorm: 001762 TAKE 1 TABLET B Y MOUTH TWICE DAILY NEEDED 03/24/2021 04/22/2021 Inactive 03/24/2021 4:55: 52 PM phentermine 37.5 mg tablet RxNorm: 005423 TAKE 1 TABLET BY MOUTH EVERY MORNING AND 1/2 TABLET AT NOON 03/06/2021 04/04/2021 Inactive Xanax 0.5 mg tablet RxNorm: 991922 TAKE 1 TABLET BY MOUTH TWICE DAILY NEEDED 01/28/2021 01/28/2021 Inactive phentermine 37.5 mg tablet RxNorm: 579969 TAKE 1 TABLET BY MOUTH EVERY MORNING AND 1/2 TABLET AT NOON Tablet(s) Oral 01/28/2021 01/28/2021 Inactive phentermine 37.5 mg tablet RxNorm: 804872 TAKE 1 TABLET BY MOUTH EVERY MORNING AND 1/2 TABLET AT NOON Tablet(s) Oral 12/31/2020 01/27/2021 Inactive phentermine 37.5 mg tablet RxNorm: 862000 TAKE 1 TABLET BY MOUTH EVERY MORNING AND 1/2 TABLET AT NOON Tablet(s) Oral 11/21/2020 12/20/2020 Inactive bupropion HCl SR 200 mg tablet,12 hr sustained-release RxNor m: 970659 1 Tablet(s) Oral two times a day 11/19/2020 06/17/2021 Active d ose increase bupropion HCl SR 150 mg tablet,12 hr sustained-release RxNor m: 424201 1 Tablet(s) Oral two times a day 11/13/2020 11/18/2020 Inactive Xanax 0.5 mg tablet RxNorm: 578930 TAKE 1 TABLET BY MOUTH TWICE DAILY NEEDED 11/11/2020 01/09/2021 Inactive bupropion HCl 75 mg tablet RxNorm: 473871 1 Tablet(s) Oral two times a day 10/23/2020 11/12/2020 Inactive prednisone 10 mg tablet RxNorm: 207002 Tablet(s) Oral 6,5,4,3,2,1 0 10/18/2020 11/20/2020 Inactive phentermine 37.5 mg tablet RxNorm: 321823 TAKE 1 TABLET BY MOUTH EVERY MORNING AND 1/2 TABLET AT NOON 10/18/2020 11/13/2020 Inactive Lexapro 10 mg tablet RxNorm: 090247 TAKE 1&1/2 TABLETS BY MOUTH DAILY IN THE EVENING 10/11/2020 10/25/2020 Inactive amlodipine 10 mg tablet RxNorm: 772127 TAKE 1 TABLET BY MOUTH DAILY 10/11/2020 10/11/2020 Inactive Kenalog 40 mg/mL suspension for injection RxNorm: 6721903 1 Milliliter(s) Injection 10/08/2020 10/08/2020 Inactive prednisone 20 mg tablet RxNorm: 243463 2 Tablet(s) Oral every day 0 10/08/2020 10/13/2020 Inactive amlodipine 10 mg tablet RxNorm: 554427 TAKE 1 TABLET BY MOUTH DAILY 09/12/2020 10/10/2020 Inactive phentermine 37.5 mg tablet RxNorm: 833839 TAKE 1 TABLET BY MOUTH EVERY MORNING AND 1/2 TABLET AT NOON 09/12/2020 10/11/2020 Inactive Xanax 0.5 mg tablet RxNorm: 586460 TAKE 1 TABLET BY MOUTH TWICE DAILY NEEDED 09/12/2020 11/08/2020 Inactive Xanax 0.5 mg tablet RxNorm: 368095 TAKE 1 TABLET BY MOUTH TWICE DAILY NEEDED 08/16/2020 09/11/2020 Inactive Lexapro 10 mg tablet RxNorm: 601551 TAKE 1&1/2 TABLETS BY MOUTH DAILY IN THE EVENING 08/16/2020 10/10/2020 Inactive phentermine 37.5 mg tablet RxNorm: 762382 TAKE 1 TABLET BY MOUTH EVERY MORNING AND 1/2 TABLET AT NOON 08/08/2020 09/06/2020 Inactive Xanax 0.5 mg tablet RxNorm: 975306 TAKE 1 TABLET BY MOUTH TWICE DAILY NEEDED 07/26/2020 08/24/2020 Inactive Xanax 0.5 mg tablet RxNorm: 552080 TAKE 1 TABLET BY MOUTH TWICE DAILY NEEDED 07/26/2020 07/25/2020 Inactive Xanax 0.5 mg tablet RxNorm: 243942 TAKE 1 TABLET BY MOUTH TWICE DAILY NEEDED 07/01/2020 07/25/2020 Inactive phentermine 37.5 mg tablet RxNorm: 940648 TAKE 1 TABLET BY MOUTH DAILY IN THE MORNING AND 1/2 TABLET AT NOON 07/01/2020 07/30/2020 Inactive phentermine 37.5 mg tablet RxNorm: 958713 TAKE 1 TABLET BY MOUTH DAILY IN THE MORNING AND 1/2 TABLET AT NOON 06/07/2020 06/30/2020 Inactive phentermine 37.5 mg tablet RxNorm: 528258 TAKE 1 TABLET BY MOUTH DAILY IN THE MORNING AND 1/2 TABLET AT NOON 05/10/2020 06/06/2020 Inactive doxycycline hyclate 100 mg tablet RxNorm: 0790390 TAKE O NE TABLET BY MOUTH TWICE DAILY 04/01/2020 04/07/2020 Inactive amlodipine 10 mg tablet RxNorm: 272905 TAKE 1 TABLET BY MOUTH DAILY 04/01/2020 09/11/2020 Inactive phentermine 37.5 mg tablet RxNorm: 567078 TAKE 1 TABLET BY MOUTH DAILY IN THE MORNING AND 1/2 TABLET AT NOON 04/01/2020 04/30/2020 Inactive Xanax 0.5 mg tablet RxNorm: 563625 TAKE 1 TABLET BY MOUTH TWICE DAILY NEEDED 04/01/2020 04/30/2020 Inactive prednisone 20 mg tablet RxNorm: 042415 1 Tablet(s) Oral two joyce es a day 03/26/2020 03/31/2020 Inactive Augmentin 875 mg-125 mg tablet RxNorm: 027537 1 Tablet(s) Oral two times a day 03/26/2020 11/20/2020 Inactive Augmentin 875 mg-125 mg tablet RxNorm: 687612 1 Tablet(s) Oral two times a day 03/26/2020 03/25/2020 Inactive doxycycline hyclate 100 mg tablet RxNorm: 4820290 1 Tabl et(s) Oral two times a day 03/21/2020 03/25/2020 Inactive mupirocin 2 % topical ointment RxNorm: 996074 1 Applica tion Topical two times a day 03/21/2020 03/28/2020 Inactive Xanax 0.5 mg tablet RxNorm: 607265 TAKE 1 TABLET BY MOUTH TWICE DAILY NEEDED 02/26/2020 03/26/2020 Inactive phentermine 37.5 mg tablet RxNorm: 614205 TAKE 1 TABLET BY MOUTH DAILY IN THE MORNING AND 1/2 TABLET AT NOON 02/26/2020 03/26/2020 Inactive phentermine 37.5 mg tablet RxNorm: 562597 1 Tablet(s) O ral every day 1 q am and 1/2 at noon 01/30/2020 02/25/2020 Inactive cyanocobalamin (vit B-12) 1,000 mcg/mL injection solution Rx Norm: 176025 1 Milliliter(s) Injection 01/30/2020 01/30/2020 Inactive phentermine 37.5 mg tablet RxNorm: 451242 1 Tablet(s) O ral every morning and 1/2 Tablet around 1 PM 12/20/2019 01/17/2020 Inactive Xanax 0.5 mg tablet RxNorm: 883646 1 Tablet(s) Oral two times a day as needed 12/19/2019 02/17/2020 Inactive Lexapro 10 mg tablet RxNorm: 796595 TAKE 1 1/2 TABLETS BY MOUTH DAILY IN THE EVENING 11/20/2019 02/17/2020 Inactive phentermine 37.5 mg tablet RxNorm: 258013 1 Tablet(s) O ral every morning and 1/2 Tablet around 1 PM 10/27/2019 11/25/2019 Inactive phentermine 37.5 mg tablet RxNorm: 791982 1 Tablet(s) O ral every morning and 1/2 Tablet around 1 PM 09/21/2019 10/20/2019 Inactive Xanax 0.5 mg tablet RxNorm: 980276 1 Tablet(s) Oral two times a day as needed 09/20/2019 11/18/2019 Inactive Augmentin 875 mg-125 mg tablet RxNorm: 687239 1 Tablet(s) Oral two times a day 09/12/2019 09/19/2019 Inactive cyanocobalamin (vit B-12) 1,000 mcg/mL injection solution Rx Norm: 696092 1 Milliliter(s) Injection 09/12/2019 09/12/2019 Inactive Kenalog 40 mg/mL suspension for injection RxNorm: 2125269 1 Milliliter(s) Injection 09/12/2019 09/12/2019 Inactive Augmentin 500 mg-125 mg tablet RxNorm: 433779 1 Tablet( s) Oral three times a day 08/29/2019 09/04/2019 Inactive Augmentin 500 mg-125 mg tablet RxNorm: 735245 1 Tablet( s) Oral three times a day 08/29/2019 08/28/2019 Inactive Tamiflu 75 mg capsule RxNorm: 146019 1 Capsule(s) Oral two time s a day 08/28/2019 09/02/2019 Inactive prednisone 20 mg tablet RxNorm: 269002 2 Tablet(s) Oral every day 0 08/28/2019 09/02/2019 Inactive phentermine 37.5 mg tablet RxNorm: 918132 1 Tablet(s) O ral every morning and 1/2 Tablet around 1 PM 08/24/2019 09/20/2019 Inactive amlodipine 10 mg tablet RxNorm: 972668 1 Tablet(s) Oral every day 0 08/15/2019 03/12/2020 Inactive Contrave 8 mg-90 mg tablet,extended release RxNorm: 2476934 2 Tablet(s) Oral two times a day 08/15/2019 08/27/2019 Inactive start with 1 pil l daily and increase each week by 1 pill to max 2 pills twice daily Xanax 0.5 mg tablet RxNorm: 172079 1 Tablet(s) Oral two times a day as needed 07/21/2019 08/18/2019 Inactive Xanax 0.5 mg tablet RxNorm: 216809 1 Tablet(s) Oral two times a day as needed 06/16/2019 06/15/2019 Inactive doxycycline hyclate 100 mg tablet RxNorm: 7817360 1 Tabl et(s) Oral two times a day daily x 1 wk then daily x 1 month then three days a week for another month 06/06/2019 08/05/2019 Inactive Norvasc 5 mg tablet RxNorm: 386027 1 Tablet(s) Oral every day 06/0608/14/2019 Inactive phentermine 37.5 mg tablet RxNorm: 483034 1.5 Tablet(s) Oral every day 1 tab in the morning and 1/2 tab around 1pm 06/06/2019 07/05/2019 Inactive Zithromax Z-Gianni 250 mg tablet RxNorm: 206412 Tablet(s) PO UD 201807/12/2019 Inactive progesterone micronized 200 mg capsule RxNorm: 659312 2 Capsule (s) PO daily 12/09/2018 12/08/2018 Inactive progesterone micronized 200 mg capsule RxNorm: 651875 2 Capsule (s) PO daily 12/09/2018 12/18/2018 Inactive Kenalog 40 mg/mL suspension for injection RxNorm: 8600324 1 Mill iliter(s) Inj 11/15/2018 11/15/2018 Inactive Zithromax Z-Gianni 250 mg tablet RxNorm: 197379 Tablet(s) PO UD 201803/14/2019 Inactive Lexapro 10 mg tablet RxNorm: 640018 1.5 Tablet(s) PO QPM 10/27/2018 0 10/21/2019 Inactive Lexapro 10 mg tablet RxNorm: 082097 1 Tablet(s) PO QPM 08/01/2018 Inactive biotin 5,000 mcg sublingual tablet RxNorm: 0927339 1 Tablet(s) S L daily 08/01/2018 Active lisinopril 10 mg tablet RxNorm: 172773 1 Tablet(s) PO daily 08/01/2018 Active Multiple Vitamins oral RxNorm: 50493 oral 08/01/2018 Ac tive levothyroxine 50 mcg tablet RxNorm: 666673 1 Tablet(s) PO daily 04/28/2021 Inactive Xanax 0.5 mg tablet RxNorm: 829066 1 Tablet(s) PO BID 12/19/201906/04 Inactive alendronate 35 mg tablet RxNorm: 175142 1 Tablet(s) PO QW 08/15/2019 08/14/2019 Inactive Medication Administered Medication Codes Instructions Start Date Status Kenalog 40 mg/mL suspension for injection RxNorm: 9866131 1Milli liter 10/08/2020 No longer Active cyanocobalamin (vit B-12) 1,000 mcg/mL injection solution Rx Norm: 041337 1Milliliter 01/30/2020 No longer Active Kenalog 40 mg/mL suspension for injection RxNorm: 6812262 1Milli liter 09/12/2019 No longer Active cyanocobalamin (vit B-12) 1,000 mcg/mL injection solution Rx Norm: 704115 1Milliliter 09/12/2019 No longer Active Kenalog 40 mg/mL suspension for injection RxNorm: 0363631 1Milli liter 11/15/2018 No longer Active Immunizations Vaccine Codes Date Status Influenza CVX: 150 04/29/2021 Complete Results Observation Observation Code Item Item Code Result Date S ervice Location Estrogens, Total LC 551156 ESTROGENS, TOTAL 165 PG/ML Unknown Testosterone Glv560 Testo 17.0 ng/dL 11/06/2020 Unkno wn Progesterone Ekw234 Prog 6.41 ng/mL 11/06/2020 Un[facility]no wn C-Reactive [...] 10/09/19 21 Unknown Cbc With Differential Ord2 [place]% 9.7 % 10/09/19 21 Unknown Cbc With [...] K/ul 021 Unknown Cbc With Differential Ord2 [place] ABS# 0.9 K/ul 10/09/19 21 Unknown Cbc [...] Ord22 FERRITIN 4.9 ng/mL 08/17/2019 Unknown B12 Opk837 B12 312.00 pg/ml 08/17/2019 Unknow n Cbc [...] 08/15/19 20 Unknown Cbc With Differential Ord2 [place]% 16.4 % 08/15/19 20 Unknown Cbc With [...] K/ul 020 Unknown Cbc With Differential Ord2 [place] ABS# 1.3 K/ul 08/15/19 20 Unknown Cbc With Differential Ord2 Eos ABS# 0.1 K/ul 08/15/19 20 Unknown Cbc With Differential Ord2 Baso ABS# 0.1 K/ul 08/15/19 20 Unknown Free T4 Rcp206 FREE T4 0.59 ng/dL 08/15/2019 Unknown Tsh Ord6 TSH (3rd IS) 1.09 uIU/mL 08/15/2019 Unkn own Comp Metabolic Hcp942 NA 137 mEq/L 08/15/2019 Unkn own Comp Metabolic Jzd825 K 4.1 mEq/L 08/15/2019 Unkn own Comp Metabolic Nvc527 CL 104 mEq/L 08/15/2019 Unkn own Comp Metabolic Kdz721 CO2 24.0 mEq/L 08/15/2019 Unk nown Comp Metabolic Bjr570 ANION GAP 13 08/15/2019 Unkn own Comp Metabolic Rxi304 GLUCOSE 76 mg/dL 08/15/2019 Unkn own Comp Metabolic Iku671 Creat 0.6 mg/dL 08/15/2019 Unkn own Comp Metabolic Uwb179 eGFR 113 ml/min/1.73m2 020 Unknown Comp Metabolic Gtq310 BUN 10 mg/dL 08/15/2019 Unkn own Comp Metabolic Xzq712 B/C Ratio 16.1 Ratio 08/15/2019 Unk nown Comp Metabolic Fcu237 CALCIUM 8.8 mg/dL 08/15/2019 Unkn own Comp Metabolic Igb456 ALK PHOS 77 U/L 08/15/2019 Unkn own Comp Metabolic Cue842 AST(SGOT) 14 U/L 08/15/2019 Unkn own Comp Metabolic Bwx093 ALT(SGPT) 11 U/L 08/15/2019 Unkn own Comp Metabolic Knw294 BILI T 0.2 mg/dL 08/15/2019 Unkn own Comp Metabolic Uzx132 ALBUMIN 4.0 g/dL 08/15/2019 Unkn own Comp Metabolic Rbf712 TPRO 6.9 g/dL 08/15/2019 Unkn own Comp Metabolic Ecc578 GLOB 2.9 g/dL 08/15/2019 Unkn own Comp Metabolic Svx814 A/G Ratio 1.4 Ratio 08/15/2019 Unkn own Comp Metabolic Wir978 Osmo 272 mOsmo 08/15/2019 Unkn own Occult Blood Occult Blood ---x3 DateTime(Free Text in ) Unknown Procedures Procedure Codes Date IIV4 VACC NO PRSV 0.5 ML IM CPT-4: 14559 04/29/2021 IMMUNIZATION ADMIN CPT-4: 69618 04/29/2021 IIV4 VACC NO PRSV 0.5 ML IM CPT-4: 92143 04/29/2021 TRIAMCINOLONE ACET INJ NOS 10 mg CPT-4: J3301 021 THER/PROPH/DIAG INJ SC/IM CPT-4: 51712 10/08/2020 VITAMIN B12 INJECTION 1000 mcg CPT-4: J3420 0 THER/PROPH/DIAG INJ SC/IM CPT-4: 75537 01/30/2020 OCCULT BLOOD FECES CPT-4: 47301 09/15/2019 TRIAMCINOLONE ACET INJ NOS 10 mg CPT-4: J3301 020 VITAMIN B12 INJECTION 1000 mcg CPT-4: J3420 0 THER/PROPH/DIAG INJ SC/IM CPT-4: 82972 09/12/2019 TRIAMCINOLONE ACET INJ NOS 10 mg CPT-4: J3301 019 Vital Signs Date Vital 04/29/2021 Blood Pressure 1: 124/88 Code: 8480-6 BMI: 39.9 Code: 19557-8 Heart Rate 1: 87 bpm Height: 5'3" Code: 8302-2 SpO2: 97% Temperature: 3 6.4 (C) / 97.5 (F) Weight: 225 lbs Code: 71823-6 02/03/2021 Blood Pressure 1: 134/80 Code: 8480-6 BMI: 40.6 Code: 37611-7 Heart Rate 1: 81 bpm Height: 5'3" Code: 8302-2 SpO2: 98% Temperature: 3 5.7 (C) / 96.3 (F) Weight: 229 lbs Code: 87809-7 12/31/2020 Blood Pressure 1: 138/86 Code: 8480-6 BMI: 40.9 Code: 82376-2 Heart Rate 1: 78 bpm Height: 5'3" Code: 8302-2 SpO2: 98% Weight: 231 lb s Code: 41965-1 11/21/2020 Blood Pressure 1: 132/84 Code: 8480-6 BMI: 40.6 Code: 00898-8 Heart Rate 1: 78 bpm Height: 5'3" Code: 8302-2 SpO2: 96% Weight: 229 lb s 6 oz Code: 60764-0 10/23/2020 Blood Pressure 1: 140/86 Code: 8480-6 BMI: 41.6 Code: 55262-6 Heart Rate 1: 78 bpm Height: 5'3" Code: 8302-2 Respiratory Rate: 18 bpm SpO2: 99% Temperature: 36.3 (C) / 97.4 (F) Weight: 235 lbs Code: 38116-0 10/15/2020 Height: Code: 8302-2 Weight: Code: 294 63-10/08/2020 Heart Rate 1: 82 bpm Height: Code: 8302-2 Weigh t: Code: 80496-6 03/21/2020 Blood Pressure 1: 120/74 Code: 8480-6 BMI: 40.4 Code: 92189-4 Heart Rate 1: 74 bpm Height: 5'3" Code: 8302-2 SpO2: 98% Temperature: 3 6.5 (C) / 97.7 (F) Weight: 228 lbs Code: 40333-8 01/30/2020 Blood Pressure 1: 132/84 Code: 8480-6 BMI: 39.9 Code: 89145-6 Heart Rate 1: 65 bpm Height: 5'3" Code: 8302-2 SpO2: 99% Temperature: 3 6.6 (C) / 97.8 (F) Weight: 225 lbs Code: 75241-3 12/20/2019 Blood Pressure 1: 122/74 Code: 8480-6 BMI: 39.0 Code: 48104-2 Heart Rate 1: 74 bpm Height: 5'3" Code: 8302-2 Respiratory Rate: 16 bpm SpO2: 98% Weight: 220 lbs Code: 97970-2 10/27/2019 Weight: 217 lbs Code: 42603 -09/12/2019 Blood Pressure 1: 134/88 Code: 8480-6 BMI: 38.8 Code: 47176-8 Heart Rate 1: 76 bpm Height: 5'3" Code: 8302-2 SpO2: 96% Temperature: 3 6.9 (C) / 98.5 (F) Weight: 219 lbs Code: 72657-4 08/28/2019 Heart Rate 1: 84 bpm Height: Code: 8302-2 SpO2: 98% Weight: Code: 69236-0 08/15/2019 Blood Pressure 1: 142/88 Code: 8480-6 BMI: 37.7 Code: 53499-0 Heart Rate 1: 82 bpm Height: 5'3" Code: 8302-2 SpO2: 99% Weight: 213 lb s Code: 79625-1 06/06/2019 Blood Pressure 1: 166/100 Code: 8480-6 B lood Pressure 1: 144/90 Code: 8480-6 BMI: 36.1 Code: 29325-7 Heart Rate 1: 68 bpm Height: 5'3" Code: 8302-2 Height: Code: 8302-2 SpO2: 98% Weight: Code: 51265-0 Weight: 204 lbs Code: 86846-6 12/05/2018 Blood Pressure 1: 154/90 Code: 8480-6 BMI: 34.4 Code: 09027-7 Heart Rate 1: 86 bpm Height: 5'3" Code: 8302-2 SpO2: 98% Weight: 194 lb s Code: 02056-1 11/15/2018 Blood Pressure 1: 128/68 Code: 8480-6 BMI: 34.4 Code: 98777-5 Heart Rate 1: 84 bpm Height: 5'3" Code: 8302-2 SpO2: 98% Temperature: 3 7.2 (C) / 99.0 (F) Weight: 194 lbs Code: 13615-5 10/27/2018 Blood Pressure 1: 140/80 Code: 8480-6 BMI: 34.7 Code: 96238-8 Heart Rate 1: 86 bpm Height: 5'3" Code: 8302-2 SpO2: 97% Weight: 196 lb s Code: 51954-3 08/01/2018 Blood Pressure 1: 116/80 Code: 8480-6 BMI: 33.1 Code: 49119-0 Heart Rate 1: 82 bpm Height: 5'3" Code: 8302-2 SpO2: 99% Weight: 187 lb s Code: 19583-7 Functional Status No Functional Status data Reason For Visit Reason For Visit Effective Dates Notes weight gain/obesity 04/29/2021 hypertension 02/03/2021 rash 10/23/2020 knee pain 10/15/2020 rash 10/08/2020 sores 03/21/2020 hypertension 01/30/2020 Weight follow up 12/20/2019 hypertension 09/12/2019 sinus congestion 08/28/2019 hypertension 08/15/2019 acne vulgaris 06/06/2019 vaginal bleeding 12/05/2018 cough 11/15/2018 depression 10/27/2018 hypertension 08/01/2018 Encounters Encounter Performer Location Codes Date 98363 EST. PATIENT, LEVEL III Diagnosis: Essential (primary) hypertension[ICD10: I10] Diagnosis: Pain from breast implant[ICD10: T85.848A] Diagnosis: VACCIN FOR INFLUENZA[ICD10: Z23] Re mcdonald MD, [facility] CPT-4: 21486 04/29/2021 ([id number]) 46238 EST. PATIENT, LEVEL IV Diagnosis: Essential (primary) hypertension[ICD10: I10] Diagnosis: Atrophy of thyroid (acquired)[ICD10: E03.4] Diagnosis: Generalized anxiety disorder[ICD10: F41.1] María Elena Villalta MD, [facility] CPT-4: 61615 02/03/2021 ([id number]) Miscellaneous no charge Diagnosis: Obesity due to excess calories[ICD10: E66.09] Kala Villalta MD, [facility] CPT-4: 73008 12/31/2020 ([id number]) Miscellaneous no charge Diagnosis: Obesity due to excess calories[ICD10: E66.09] María Elena Villalta MD, [facility] CPT-4: 43141 11/21/2020 ([id number]) 83064 EST. PATIENT, LEVEL IV Diagnosis: Essential (primary) hypertension[ICD10: I10] Diagnosis: Obesity due to excess calories[ICD10: E66.09] Diagnosis: Weight gain[ICD10: R63.5] Diagnosis: Knee pain, left[ICD10: M25.562] María Elena edler MD, [facility] CPT-4: 63962 10/23/2020 84280 EST. PATIENT, LEVEL IV Diagnosis: Other fatigue[ICD10: R53.83] Diagnosis: Right knee pain[ICD10: m25.561] Diagnosis: Knee pain, left[ICD10: M25.562] Kala Villalta MD , [facility] CPT-4: 94224 10/15/2020 45624 EST. PATIENT, LEVEL IV Diagnosis: Rash and other nonspecific skin eruption[ICD10: R21] Diagnosis: Enlarged lymph node in neck[ICD10: R59.0] Kala Villalta MD, [facility] CPT-4: 71651 10/08/2020 ([id number]) 70693 EST. PATIENT, LEVEL III Diagnosis: Non-bullous impetigo[ICD10: L01.01] Diagnosis: Sinus congestion[ICD10: R09.81] Re elder MD, [facility] CPT-4: 95835 03/21/2020 ([id number]) 01148 EST. PATIENT, LEVEL III Diagnosis: Essential (primary) hypertension[ICD10: I10] Diagnosis: Vitamin B12 deficiency due to intestinal malabsorption[ICD10: E53.8] Diagnosis: Obesity due to excess calories[ICD10: E66.09] Re Villalta MD, [facility] CPT-4: 14190 01/30/2020 ([id number]) 29094 EST. PATIENT, LEVEL I Diagnosis: Weight gain[ICD10: R63.5] María Elena Villalta MD, [facility] CPT- 4: 78881 12/20/2019 ([id number]) Miscellaneous no charge Diagnosis: Weight gain[ICD10: R63.5] María Elena Villalta MD, [facility] CPT- 4: 06096 10/27/2019 ([id number]) 66190 EST. PATIENT, LEVEL IV Diagnosis: Essential (primary) hypertension[ICD10: I10] Diagnosis: Other acute sinusitis[ICD10: J01.80] Diagnosis: Acquired iron deficiency anemia due to decreased absorption[ICD10: D50.8] Diagnosis: Vitamin B12 deficiency due to intestinal malabsorption[ICD10: E53.8] Re Villalta MD, [facility] CPT-4: 91602 09/12/2019 78430 EST. PATIENT, LEVEL III Diagnosis: Influenza[ICD10: J11.1] Diagnosis: Rash[ICD10: R21] Kala Villalta MD, [facility] CPT-4: 03288 08/28/2019 ([id number]) 23392 EST. PATIENT, LEVEL IV Diagnosis: Essential (primary) hypertension[ICD10: I10] Diagnosis: Atrophy of thyroid (acquired)[ICD10: E03.4] Diagnosis: Generalized anxiety disorder[ICD10: F41.1] Re Villalta MD, [facility] CPT-4: 67406 08/15/2019 ([id number]) 38665 EST. PATIENT, LEVEL IV Diagnosis: Atrophy of thyroid (acquired)[ICD10: E03.4] Diagnosis: Generalized anxiety disorder[ICD10: F41.1] Diagnosis: Rosacea, acne[ICD10: L71.9] Diagnosis: Essential (primary) hypertension[ICD10: I10] María Elena Villalta MD, [facility] CPT-4: 00029 06/06/2019 ([id number]) 55697 EST. PATIENT, LEVEL IV Diagnosis: Excessive and frequent menstruation with regular cycle[ICD10: N92.0] [facility] CPT-4: 68377 12/05/2018 11481 EST. PATIENT, LEVEL III Diagnosis: Other acute sinusitis[ICD10: J01.80] Diagnosis: Other allergic rhinitis[ICD10: J30.89] Kala Andino MD, [facility] CPT-4: 28599 11/15/2018 ([id number]) 20241 EST. PATIENT, LEVEL III Diagnosis: Essential (primary) hypertension[ICD10: I10] Diagnosis: Generalized anxiety disorder[ICD10: F41.1] María Elena Villalta MD, [facility] CPT-4: 22761 10/27/2018 ([id number]) PREV VISIT NEW AGE 40-64 Diagnosis: Encounter for general adult medical examination with abnormal findings[ICD10: Z00.01] María Elena Villalta MD, [facility] CPT-4: 63371 08/01/2018 Plan of Care Planned Activity Notes [...] -recommend Dr Chris or Dr Hart at [facility]- patient to call for consultation - she is also due for mammogram- orders sent to 04/29/2021 Appointment: Re Palmer WPtel: [facility] [phone] [place] (15 min) Moderate 04/29/2021 Patient Education: Patient [...] dose. 02/03/2021 Appointment: María Elena [facility]alta [facility] [phone] [facility] [place] [place] (15 min) Moderate 02/03/2021 Patient Education: Patient Medication Summary Completed 02/03/2021 Patient Education: Patient Medication Summary Completed 01/28/2021 Appointment: Nurse Visit 12/31/2020 Patient Education: Patient Medication Summary Completed 12/31/2020 Appointment: Nurse Visit 11/21/2020 Patient Education: Patient Medication Summary Completed 11/21/2020 Patient Education: Obesity Completed 0 11/21/2020 Appointment: María Elena [facility]alta [facility] [phone] [facility] [place] [place] (15 min) Moderate 10/30/2020 Visit Plan: Hypertension [...] she had hormone labs done with the [facility] - we have some labs, but they do not show estrogen/fsh/lh, progesterone - we are going to re-request labs and if they have not been done, we will check hormones. Depression/anxiety - decrease lexapro to 1/2 tab x 3 days then stop and start on wellbutrin voltaren gel 1% apply to knees three times a day 10/23/2020 Appointment: María Elena Villalta [facility]el[facility] [phone] [facility] [place] [place] (15 min) Moderate 10/23/2020 Patient Education: Patient Medication Summary Completed 10/23/2020 Patient Education: Obesity Completed 0 10/23/2020 Visit Plan: Ongoing fatigue and joint pa in - pt is to keep her appointment with Rheumatology - pt is to monitor symptoms and notify clinic if symptoms do not improve, if they worsen, or with any changes, questions, or concerns. 10/15/2020 Appointment: Kala Hair [facility] [phone] [id number] (30 min) Complex 10/15/2020 Patient Education: Patient [...] if indicated 10/08/2020 Appointment: Kala Hair WPtel: [id number] [place] (30 min) Complex 10/08/2020 Patient Education: Patient Medication Summary Completed 10/08/2020 Visit Plan: Impetigo - rx for abx provid ed and instructed on use- call if rash does not resolve Sinus congestion- RX given to patient, sinus rinses also recommended. Call if symptoms do not show improvement. 03/21/2020 Appointment: Re Palmer WPtel: [id number] [place] (15 min) Moderate 03/21/2020 Patient Education: [...] weight check. 01/30/2020 Appointment: Re Palmer WPtel: [phone] [phone] (15 min) Moderate 01/30/2020 Patient Education: Patient Medication Summary Completed 01/30/2020 Visit Plan: Weight gain -okay for refill of phentermine 12/20/2019 Appointment: Nurse Visit 12/20/2019 Patient Education: Patient Medication Summary Completed 12/20/2019 Appointment: Nurse Visit 10/27/2019 Patient Education: Patient Medication Summary Completed 10/27/2019 Appointment: Lab Draw 09/15/2019 Patient Education: Patient Medication Summary Completed 09/15/2019 Appointment: Re Palmer WPtel: [phone] [phone] (15 min) Moderate 09/12/2019 Patient [...] or concerns. 08/28/2019 Appointment: Kala Hair WPtel: [phone] [facility] (15 min) Moderate 08/28/2019 Patient Education: Patient [...] weight check. 08/15/2019 Appointment: Re Palmer WPtel: [phone] [phone] (30 min) Complex 08/15/2019 Patient Education: Patient Medication Summary Completed 08/15/2019 Appointment: María Elena Villalta WPtel: [phone] [phone] (15 min) Moderate 07/10/2019 Visit Plan: Hypothyroidism [...] Completed 06/06/2019 Appointment: [facility]ía [phone] (15 min) Moderate 02/07/2019 Patient Education: Patient Medication Summary Completed 12/14/2018 Appointment: Re Palmer WPtel: [phone] [phone] [place] (15 min) Moderate 12/05/2018 Patient Education: Patient [...] allergy spray. 11/15/2018 Appointment: Kala Hair WPtel: [phone] [facility] (30 min) Complex 11/15/2018 Patient Education: Patient [...] medications. 10/27/2018 Appointment: María Elena Villalta WPtel: [phone] [phone] (15 min) Moderate 10/27/2018 Patient Education: Patient Medication Summary Completed 10/27/2018 Appointment: María Elena Villalta WPtel: [facility] (15 min) Moderate 10/12/2018 Appointment: María Elena Villalta WPtel: [phone] [phone] (15 min) Moderate 09/26/2018 Visit Plan: Well [...] in 6 weeks for assessment 08/01/2018 Appointment: AmbarAbhisheky WPtel: [facility] [place] New Patient 08/01/2018 Patient Education: Patient Medication Summary Completed 08/01/2018 Instructions Comment [facility] [phone] Hart Mammogram Refill [...] -recommend Dr Chris or Dr Hart at [facility]- patient to call for consultation [...] she had hormone labs done with the [facility] - we have some labs, but they [...]
--- OUTSIDE RECORDS SUMMARY | 2021-07-06 15:49 | XMS REPORT | CCD ---
Author Author Antoinette Villalta Organization María Elena Villalta MD, [facility] Address [address] [place] [address] Phone Care Team Providers Care Jewel Waxer Name Role Phone María Elena Villalta PP Unavailable CCM Unavailable Summary Purpose Interface Exchange Insurance Providers Payer name Policy type / Coverage type Covered libertarian ID Effective Begin Date Effective End Date Blue Cross Blue [facility] Blue Cross/Blue [facility] [id number] Unknown Unknown Family history Father Diagnosis Age At Onset Arthritis Unknown Breast cancer Unknown Mother Diagnosis Age At Onset Hypertension Unknown Social History Social History Element Codes Description Effective Dates Marital status Unknown Ray 08/01/2018 Number of children Unknown 4 08/01/2018 Employment Unknown Currently employed [employer] 08/01/[address]: 571659132 Never smoker 08/01/2018 Alcohol history Unknown pt [...] Start Date Stop Date Status Fill Instructions alprazolam 0.5 mg tablet RxNorm: 380915 TAKE 1 TABLET B Y MOUTH TWICE DAILY NEEDED 06/20/2021 09/17/2021 Active phentermine 37.5 mg tablet RxNorm: 428959 TAKE 1 TABLET BY MOUTH EVERY MORNING AND 1/2 TABLET DAILY AT NOON 06/20/2021 07/19/2021 Active phentermine 37.5 mg tablet RxNorm: 549414 TAKE 1 TABLET BY MOUTH EVERY MORNING AND 1/2 TABLET AT NOON 05/30/2021 05/30/2021 Inactive phentermine 37.5 mg tablet RxNorm: 983756 TAKE 1 TABLET BY MOUTH EVERY MORNING AND 1/2 TABLET AT NOON 04/29/2021 04/29/2021 Inactive amlodipine 10 mg tablet RxNorm: 920484 TAKE 1 TABLET BY MOUTH DAILY 03/24/2021 07/21/2021 Active 03/24/2021 4:56:15 PM alprazolam 0.5 mg tablet RxNorm: 971733 TAKE 1 TABLET B Y MOUTH TWICE DAILY NEEDED 03/24/2021 03/24/2021 Inactive 03/24/2021 4:55: 52 PM phentermine 37.5 mg tablet RxNorm: 598293 TAKE 1 TABLET BY MOUTH EVERY MORNING AND 1/2 TABLET AT NOON 03/06/2021 04/04/2021 Inactive Xanax 0.5 mg tablet RxNorm: 697545 TAKE 1 TABLET BY MOUTH TWICE DAILY NEEDED 01/28/2021 01/28/2021 Inactive phentermine 37.5 mg tablet RxNorm: 523515 TAKE 1 TABLET BY MOUTH EVERY MORNING AND 1/2 TABLET AT NOON Tablet(s) Oral 01/28/2021 01/28/2021 Inactive phentermine 37.5 mg tablet RxNorm: 995303 TAKE 1 TABLET BY MOUTH EVERY MORNING AND 1/2 TABLET AT NOON Tablet(s) Oral 12/31/2020 01/27/2021 Inactive phentermine 37.5 mg tablet RxNorm: 345096 TAKE 1 TABLET BY MOUTH EVERY MORNING AND 1/2 TABLET AT NOON Tablet(s) Oral 11/21/2020 12/20/2020 Inactive bupropion HCl SR 200 mg tablet,12 hr sustained-release RxNor m: 401770 1 Tablet(s) Oral two times a day 11/19/2020 06/17/2021 Inactive d ose increase bupropion HCl SR 150 mg tablet,12 hr sustained-release RxNor m: 698100 1 Tablet(s) Oral two times a day 11/13/2020 11/18/2020 Inactive Xanax 0.5 mg tablet RxNorm: 860806 TAKE 1 TABLET BY MOUTH TWICE DAILY NEEDED 11/11/2020 01/09/2021 Inactive bupropion HCl 75 mg tablet RxNorm: 397407 1 Tablet(s) Oral two times a day 10/23/2020 11/12/2020 Inactive prednisone 10 mg tablet RxNorm: 139384 Tablet(s) Oral 6,5,4,3,2,1 0 10/18/2020 11/20/2020 Inactive phentermine 37.5 mg tablet RxNorm: 055707 TAKE 1 TABLET BY MOUTH EVERY MORNING AND 1/2 TABLET AT NOON 10/18/2020 11/13/2020 Inactive Lexapro 10 mg tablet RxNorm: 951283 TAKE 1&1/2 TABLETS BY MOUTH DAILY IN THE EVENING 10/11/2020 10/25/2020 Inactive amlodipine 10 mg tablet RxNorm: 042293 TAKE 1 TABLET BY MOUTH DAILY 10/11/2020 10/11/2020 Inactive Kenalog 40 mg/mL suspension for injection RxNorm: 2038984 1 Milliliter(s) Injection 10/08/2020 10/08/2020 Inactive prednisone 20 mg tablet RxNorm: 205308 2 Tablet(s) Oral every day 0 10/08/2020 10/13/2020 Inactive amlodipine 10 mg tablet RxNorm: 284879 TAKE 1 TABLET BY MOUTH DAILY 09/12/2020 10/10/2020 Inactive phentermine 37.5 mg tablet RxNorm: 080101 TAKE 1 TABLET BY MOUTH EVERY MORNING AND 1/2 TABLET AT NOON 09/12/2020 10/11/2020 Inactive Xanax 0.5 mg tablet RxNorm: 653863 TAKE 1 TABLET BY MOUTH TWICE DAILY NEEDED 09/12/2020 11/08/2020 Inactive Xanax 0.5 mg tablet RxNorm: 218837 TAKE 1 TABLET BY MOUTH TWICE DAILY NEEDED 08/16/2020 09/11/2020 Inactive Lexapro 10 mg tablet RxNorm: 752079 TAKE 1&1/2 TABLETS BY MOUTH DAILY IN THE EVENING 08/16/2020 10/10/2020 Inactive phentermine 37.5 mg tablet RxNorm: 842444 TAKE 1 TABLET BY MOUTH EVERY MORNING AND 1/2 TABLET AT NOON 08/08/2020 09/06/2020 Inactive Xanax 0.5 mg tablet RxNorm: 463189 TAKE 1 TABLET BY MOUTH TWICE DAILY NEEDED 07/26/2020 08/24/2020 Inactive Xanax 0.5 mg tablet RxNorm: 909455 TAKE 1 TABLET BY MOUTH TWICE DAILY NEEDED 07/26/2020 07/25/2020 Inactive Xanax 0.5 mg tablet RxNorm: 797035 TAKE 1 TABLET BY MOUTH TWICE DAILY NEEDED 07/01/2020 07/25/2020 Inactive phentermine 37.5 mg tablet RxNorm: 333860 TAKE 1 TABLET BY MOUTH DAILY IN THE MORNING AND 1/2 TABLET AT NOON 07/01/2020 07/30/2020 Inactive phentermine 37.5 mg tablet RxNorm: 692703 TAKE 1 TABLET BY MOUTH DAILY IN THE MORNING AND 1/2 TABLET AT NOON 06/07/2020 06/30/2020 Inactive phentermine 37.5 mg tablet RxNorm: 229897 TAKE 1 TABLET BY MOUTH DAILY IN THE MORNING AND 1/2 TABLET AT NOON 05/10/2020 06/06/2020 Inactive doxycycline hyclate 100 mg tablet RxNorm: 7531758 TAKE O NE TABLET BY MOUTH TWICE DAILY 04/01/2020 04/07/2020 Inactive amlodipine 10 mg tablet RxNorm: 166587 TAKE 1 TABLET BY MOUTH DAILY 04/01/2020 09/11/2020 Inactive phentermine 37.5 mg tablet RxNorm: 800221 TAKE 1 TABLET BY MOUTH DAILY IN THE MORNING AND 1/2 TABLET AT NOON 04/01/2020 04/30/2020 Inactive Xanax 0.5 mg tablet RxNorm: 193100 TAKE 1 TABLET BY MOUTH TWICE DAILY NEEDED 04/01/2020 04/30/2020 Inactive prednisone 20 mg tablet RxNorm: 553239 1 Tablet(s) Oral two joyce es a day 03/26/2020 03/31/2020 Inactive Augmentin 875 mg-125 mg tablet RxNorm: 391103 1 Tablet(s) Oral two times a day 03/26/2020 11/20/2020 Inactive Augmentin 875 mg-125 mg tablet RxNorm: 015173 1 Tablet(s) Oral two times a day 03/26/2020 03/25/2020 Inactive doxycycline hyclate 100 mg tablet RxNorm: 7802414 1 Tabl et(s) Oral two times a day 03/21/2020 03/25/2020 Inactive mupirocin 2 % topical ointment RxNorm: 614599 1 Applica tion Topical two times a day 03/21/2020 03/28/2020 Inactive Xanax 0.5 mg tablet RxNorm: 701115 TAKE 1 TABLET BY MOUTH TWICE DAILY NEEDED 02/26/2020 03/26/2020 Inactive phentermine 37.5 mg tablet RxNorm: 428066 TAKE 1 TABLET BY MOUTH DAILY IN THE MORNING AND 1/2 TABLET AT NOON 02/26/2020 03/26/2020 Inactive phentermine 37.5 mg tablet RxNorm: 857873 1 Tablet(s) O ral every day 1 q am and 1/2 at noon 01/30/2020 02/25/2020 Inactive cyanocobalamin (vit B-12) 1,000 mcg/mL injection solution Rx Norm: 333300 1 Milliliter(s) Injection 01/30/2020 01/30/2020 Inactive phentermine 37.5 mg tablet RxNorm: 104673 1 Tablet(s) O ral every morning and 1/2 Tablet around 1 PM 12/20/2019 01/17/2020 Inactive Xanax 0.5 mg tablet RxNorm: 116582 1 Tablet(s) Oral two times a day as needed 12/19/2019 02/17/2020 Inactive Lexapro 10 mg tablet RxNorm: 862340 TAKE 1 1/2 TABLETS BY MOUTH DAILY IN THE EVENING 11/20/2019 02/17/2020 Inactive phentermine 37.5 mg tablet RxNorm: 571534 1 Tablet(s) O ral every morning and 1/2 Tablet around 1 PM 10/27/2019 11/25/2019 Inactive phentermine 37.5 mg tablet RxNorm: 686087 1 Tablet(s) O ral every morning and 1/2 Tablet around 1 PM 09/21/2019 10/20/2019 Inactive Xanax 0.5 mg tablet RxNorm: 159812 1 Tablet(s) Oral two times a day as needed 09/20/2019 11/18/2019 Inactive Augmentin 875 mg-125 mg tablet RxNorm: 482101 1 Tablet(s) Oral two times a day 09/12/2019 09/19/2019 Inactive cyanocobalamin (vit B-12) 1,000 mcg/mL injection solution Rx Norm: 802642 1 Milliliter(s) Injection 09/12/2019 09/12/2019 Inactive Kenalog 40 mg/mL suspension for injection RxNorm: 5403009 1 Milliliter(s) Injection 09/12/2019 09/12/2019 Inactive Augmentin 500 mg-125 mg tablet RxNorm: 841005 1 Tablet( s) Oral three times a day 08/29/2019 09/04/2019 Inactive Augmentin 500 mg-125 mg tablet RxNorm: 801986 1 Tablet( s) Oral three times a day 08/29/2019 08/28/2019 Inactive Tamiflu 75 mg capsule RxNorm: 686190 1 Capsule(s) Oral two time s a day 08/28/2019 09/02/2019 Inactive prednisone 20 mg tablet RxNorm: 300625 2 Tablet(s) Oral every day 0 08/28/2019 09/02/2019 Inactive phentermine 37.5 mg tablet RxNorm: 899485 1 Tablet(s) O ral every morning and 1/2 Tablet around 1 PM 08/24/2019 09/20/2019 Inactive amlodipine 10 mg tablet RxNorm: 899335 1 Tablet(s) Oral every day 0 08/15/2019 03/12/2020 Inactive Contrave 8 mg-90 mg tablet,extended release RxNorm: 3575786 2 Tablet(s) Oral two times a day 08/15/2019 08/27/2019 Inactive start with 1 pil l daily and increase each week by 1 pill to max 2 pills twice daily Xanax 0.5 mg tablet RxNorm: 060954 1 Tablet(s) Oral two times a day as needed 07/21/2019 08/18/2019 Inactive Xanax 0.5 mg tablet RxNorm: 828548 1 Tablet(s) Oral two times a day as needed 06/16/2019 06/15/2019 Inactive doxycycline hyclate 100 mg tablet RxNorm: 7928555 1 Tabl et(s) Oral two times a day daily x 1 wk then daily x 1 month then three days a week for another month 06/06/2019 08/05/2019 Inactive Norvasc 5 mg tablet RxNorm: 341917 1 Tablet(s) Oral every day 06/0608/14/2019 Inactive phentermine 37.5 mg tablet RxNorm: 960353 1.5 Tablet(s) Oral every day 1 tab in the morning and 1/2 tab around 1pm 06/06/2019 07/05/2019 Inactive Zithromax Z-Gianni 250 mg tablet RxNorm: 013244 Tablet(s) PO UD 201807/12/2019 Inactive progesterone micronized 200 mg capsule RxNorm: 207495 2 Capsule (s) PO daily 12/09/2018 12/08/2018 Inactive progesterone micronized 200 mg capsule RxNorm: 543910 2 Capsule (s) PO daily 12/09/2018 12/18/2018 Inactive Kenalog 40 mg/mL suspension for injection RxNorm: 6551145 1 Mill iliter(s) Inj 11/15/2018 11/15/2018 Inactive Zithromax Z-Gianni 250 mg tablet RxNorm: 768755 Tablet(s) PO UD 201803/14/2019 Inactive Lexapro 10 mg tablet RxNorm: 245113 1.5 Tablet(s) PO QPM 10/27/2018 0 10/21/2019 Inactive Lexapro 10 mg tablet RxNorm: 921139 1 Tablet(s) PO QPM 08/01/2018 Inactive biotin 5,000 mcg sublingual tablet RxNorm: 3571224 1 Tablet(s) S L daily 08/01/2018 Active lisinopril 10 mg tablet RxNorm: 777809 1 Tablet(s) PO daily 08/01/2018 Active Multiple Vitamins oral RxNorm: 34310 oral 08/01/2018 Ac tive levothyroxine 50 mcg tablet RxNorm: 949668 1 Tablet(s) PO daily 04/28/2021 Inactive Xanax 0.5 mg tablet RxNorm: 691282 1 Tablet(s) PO BID 12/19/201906/04 Inactive alendronate 35 mg tablet RxNorm: 495625 1 Tablet(s) PO QW 08/15/2019 08/14/2019 Inactive Medication Administered Medication Codes Instructions Start Date Status Kenalog 40 mg/mL suspension for injection RxNorm: 4774246 1Milli liter 10/08/2020 No longer Active cyanocobalamin (vit B-12) 1,000 mcg/mL injection solution Rx Norm: 065747 1Milliliter 01/30/2020 No longer Active Kenalog 40 mg/mL suspension for injection RxNorm: 6678523 1Milli liter 09/12/2019 No longer Active cyanocobalamin (vit B-12) 1,000 mcg/mL injection solution Rx Norm: 838277 1Milliliter 09/12/2019 No longer Active Kenalog 40 mg/mL suspension for injection RxNorm: 7202899 1Milli liter 11/15/2018 No longer Active Immunizations Vaccine Codes Dose Date Status Influenza CVX: 150 0.5 04/29/2021 Complete Results Observation Observation Code Item Item Code Result Date S ervice Location Estrogens, Total LC 623288 ESTROGENS, TOTAL 165 PG/ML Unknown Testosterone Ide953 Testo 17.0 ng/dL 11/06/2020 Unkno wn Progesterone Wds374 Prog 6.41 ng/mL 11/06/2020 Unkno wn C-Reactive [...] 10/09/19 21 Unknown Cbc With Differential Ord2 [place]% 9.7 % 10/09/19 21 Unknown Cbc With [...] K/ul 021 Unknown Cbc With Differential Ord2 [place] ABS# 0.9 K/ul 10/09/19 21 Unknown Cbc [...] Ord22 FERRITIN 4.9 ng/mL 08/17/2019 Unknown B12 Duk737 B12 312.00 pg/ml 08/17/2019 Unknow n Cbc [...] 08/15/19 20 Unknown Cbc With Differential Ord2 [place]% 16.4 % 08/15/19 20 Unknown Cbc With [...] K/ul 020 Unknown Cbc With Differential Ord2 [place] ABS# 1.3 K/ul 08/15/19 20 Unknown Cbc With Differential Ord2 Eos ABS# 0.1 K/ul 08/15/19 20 Unknown Cbc With Differential Ord2 Baso ABS# 0.1 K/ul 08/15/19 20 Unknown Free T4 Ine280 FREE T4 0.59 ng/dL 08/15/2019 Unknown Tsh Ord6 TSH (3rd IS) 1.09 uIU/mL 08/15/2019 Unkn own Comp Metabolic Mla921 NA 137 mEq/L 08/15/2019 Unkn own Comp Metabolic Dde644 K 4.1 mEq/L 08/15/2019 Unkn own Comp Metabolic Krw140 CL 104 mEq/L 08/15/2019 Unkn own Comp Metabolic Yih908 CO2 24.0 mEq/L 08/15/2019 Unk nown Comp Metabolic Tya769 ANION GAP 13 08/15/2019 Unkn own Comp Metabolic Jao084 GLUCOSE 76 mg/dL 08/15/2019 Unkn own Comp Metabolic Tmz298 Creat 0.6 mg/dL 08/15/2019 Unkn own Comp Metabolic Pyp675 eGFR 113 ml/min/1.73m2 020 Unknown Comp Metabolic Qkn177 BUN 10 mg/dL 08/15/2019 Unkn own Comp Metabolic Ovb299 B/C Ratio 16.1 Ratio 08/15/2019 Unk nown Comp Metabolic Std224 CALCIUM 8.8 mg/dL 08/15/2019 Unkn own Comp Metabolic Dup871 ALK PHOS 77 U/L 08/15/2019 Unkn own Comp Metabolic Obr963 AST(SGOT) 14 U/L 08/15/2019 Unkn own Comp Metabolic Oat909 ALT(SGPT) 11 U/L 08/15/2019 Unkn own Comp Metabolic Uqk278 BILI T 0.2 mg/dL 08/15/2019 Unkn own Comp Metabolic Lje713 ALBUMIN 4.0 g/dL 08/15/2019 Unkn own Comp Metabolic Rix172 TPRO 6.9 g/dL 08/15/2019 Unkn own Comp Metabolic Twd763 GLOB 2.9 g/dL 08/15/2019 Unkn own Comp Metabolic Txy375 A/G Ratio 1.4 Ratio 08/15/2019 Unkn own Comp Metabolic Rwa899 Osmo 272 mOsmo 08/15/2019 Unkn own Occult Blood Occult Blood ---x3 DateTime(Free Text in Apr) Unknown Procedures Procedure Codes Date IIV4 VACC NO PRSV 0.5 ML IM CPT-4: 93994 04/29/2021 IMMUNIZATION ADMIN CPT-4: 14058 04/29/2021 IIV4 VACC NO PRSV 0.5 ML IM CPT-4: 48516 04/29/2021 TRIAMCINOLONE ACET INJ NOS 10 mg CPT-4: J3301 021 THER/PROPH/DIAG INJ SC/IM CPT-4: 26139 10/08/2020 VITAMIN B12 INJECTION 1000 mcg CPT-4: J3420 0 THER/PROPH/DIAG INJ SC/IM CPT-4: 87871 01/30/2020 OCCULT BLOOD FECES CPT-4: 66840 09/15/2019 TRIAMCINOLONE ACET INJ NOS 10 mg CPT-4: J3301 020 VITAMIN B12 INJECTION 1000 mcg CPT-4: J3420 0 THER/PROPH/DIAG INJ SC/IM CPT-4: 35038 09/12/2019 TRIAMCINOLONE ACET INJ NOS 10 mg CPT-4: J3301 019 Vital Signs Date Vital 04/29/2021 Blood Pressure 1: 124/88 Code: 8480-6 BMI: 39.9 Code: 12594-6 Heart Rate 1: 87 bpm Height: 5'3" Code: 8302-2 SpO2: 97% Temperature: 3 6.4 (C) / 97.5 (F) Weight: 225 lbs Code: 75099-9 02/03/2021 Blood Pressure 1: 134/80 Code: 8480-6 BMI: 40.6 Code: 04964-7 Heart Rate 1: 81 bpm Height: 5'3" Code: 8302-2 SpO2: 98% Temperature: 3 5.7 (C) / 96.3 (F) Weight: 229 lbs Code: 40793-2 12/31/2020 Blood Pressure 1: 138/86 Code: 8480-6 BMI: 40.9 Code: 46935-3 Heart Rate 1: 78 bpm Height: 5'3" Code: 8302-2 SpO2: 98% Weight: 231 lb s Code: 87832-9 11/21/2020 Blood Pressure 1: 132/84 Code: 8480-6 BMI: 40.6 Code: 19673-0 Heart Rate 1: 78 bpm Height: 5'3" Code: 8302-2 SpO2: 96% Weight: 229 lb s 6 oz Code: 31336-2 10/23/2020 Blood Pressure 1: 140/86 Code: 8480-6 BMI: 41.6 Code: 11205-9 Heart Rate 1: 78 bpm Height: 5'3" Code: 8302-2 Respiratory Rate: 18 bpm SpO2: 99% Temperature: 36.3 (C) / 97.4 (F) Weight: 235 lbs Code: 44446-6 10/15/2020 Height: Code: 8302-2 Weight: Code: 294 63-7 10/08/2020 Heart Rate 1: 82 bpm Height: Code: 8302-2 Weigh t: Code: 80116-6 03/21/2020 Blood Pressure 1: 120/74 Code: 8480-6 BMI: 40.4 Code: 84253-6 Heart Rate 1: 74 bpm Height: 5'3" Code: 8302-2 SpO2: 98% Temperature: 3 6.5 (C) / 97.7 (F) Weight: 228 lbs Code: 48857-3 01/30/2020 Blood Pressure 1: 132/84 Code: 8480-6 BMI: 39.9 Code: 79401-9 Heart Rate 1: 65 bpm Height: 5'3" Code: 8302-2 SpO2: 99% Temperature: 3 6.6 (C) / 97.8 (F) Weight: 225 lbs Code: 73280-7 12/20/2019 Blood Pressure 1: 122/74 Code: 8480-6 BMI: 39.0 Code: 31587-4 Heart Rate 1: 74 bpm Height: 5'3" Code: 8302-2 Respiratory Rate: 16 bpm SpO2: 98% Weight: 220 lbs Code: 16973-5 10/27/2019 Weight: 217 lbs Code: 68304 -7 09/12/2019 Blood Pressure 1: 134/88 Code: 8480-6 BMI: 38.8 Code: 04543-2 Heart Rate 1: 76 bpm Height: 5'3" Code: 8302-2 SpO2: 96% Temperature: 3 6.9 (C) / 98.5 (F) Weight: 219 lbs Code: 94623-9 08/28/2019 Heart Rate 1: 84 bpm Height: Code: 8302-2 SpO2: 98% Weight: Code: 02319-0 08/15/2019 Blood Pressure 1: 142/88 Code: 8480-6 BMI: 37.7 Code: 31129-9 Heart Rate 1: 82 bpm Height: 5'3" Code: 8302-2 SpO2: 99% Weight: 213 lb s Code: 54122-1 06/06/2019 Blood Pressure 1: 166/100 Code: 8480-6 B lood Pressure 1: 144/90 Code: 8480-6 BMI: 36.1 Code: 44377-8 Heart Rate 1: 68 bpm Height: 5'3" Code: 8302-2 Height: Code: 8302-2 SpO2: 98% Weight: Code: 56796-8 Weight: 204 lbs Code: 31758-3 12/05/2018 Blood Pressure 1: 154/90 Code: 8480-6 BMI: 34.4 Code: 87905-5 Heart Rate 1: 86 bpm Height: 5'3" Code: 8302-2 SpO2: 98% Weight: 194 lb s Code: 12435-9 11/15/2018 Blood Pressure 1: 128/68 Code: 8480-6 BMI: 34.4 Code: 11972-5 Heart Rate 1: 84 bpm Height: 5'3" Code: 8302-2 SpO2: 98% Temperature: 3 7.2 (C) / 99.0 (F) Weight: 194 lbs Code: 18446-6 10/27/2018 Blood Pressure 1: 140/80 Code: 8480-6 BMI: 34.7 Code: 66271-5 Heart Rate 1: 86 bpm Height: 5'3" Code: 8302-2 SpO2: 97% Weight: 196 lb s Code: 51892-0 08/01/2018 Blood Pressure 1: 116/80 Code: 8480-6 BMI: 33.1 Code: 04529-8 Heart Rate 1: 82 bpm Height: 5'3" Code: 8302-2 SpO2: 99% Weight: 187 lb s Code: 13371-5 Functional Status No Functional Status data Reason For Visit Reason For Visit Effective Dates Notes weight gain/obesity 04/29/2021 hypertension 02/03/2021 rash 10/23/2020 knee pain 10/15/2020 rash 10/08/2020 sores 03/21/2020 hypertension 01/30/2020 Weight follow up 12/20/2019 hypertension 09/12/2019 sinus congestion 08/28/2019 hypertension 08/15/2019 acne vulgaris 06/06/2019 vaginal bleeding 12/05/2018 cough 11/15/2018 depression 10/27/2018 hypertension 08/01/2018 Encounters Encounter Performer Location Codes Date ( EST. PATIENT, LEVEL III Diagnosis: Essential (primary) hypertension[ICD10: I10] Diagnosis: Pain from breast implant[ICD10: T85.848A] Diagnosis: VACCIN FOR INFLUENZA[ICD10: Z23] Re mcdonald MD, [facility] CPT-4: 39456 04/29/2021 ([id number]) 08260 EST. PATIENT, LEVEL IV Diagnosis: Essential (primary) hypertension[ICD10: I10] Diagnosis: Atrophy of thyroid (acquired)[ICD10: E03.4] Diagnosis: Generalized anxiety disorder[ICD10: F41.1] María Elena Villalta MD, [facility] CPT-4: 80930 02/03/2021 ([id number]) Miscellaneous no charge Diagnosis: Obesity due to excess calories[ICD10: E66.09] Kala Villalta MD, [facility] CPT-4: 16802 12/31/2020 ([id number]) Miscellaneous no charge Diagnosis: Obesity due to excess calories[ICD10: E66.09] María Elena Villalta MD, [facility] CPT-4: 29568 11/21/2020 ([id number]) 93617 EST. PATIENT, LEVEL IV Diagnosis: Essential (primary) hypertension[ICD10: I10] Diagnosis: Obesity due to excess calories[ICD10: E66.09] Diagnosis: Weight gain[ICD10: R63.5] Diagnosis: Knee pain, left[ICD10: M25.562] María Elena elder MD, [facility] CPT-4: 41871 10/23/2020 [id number] EST. PATIENT, LEVEL IV Diagnosis: Other fatigue[ICD10: R53.83] Diagnosis: Right knee pain[ICD10: m25.561] Diagnosis: Knee pain, left[ICD10: M25.562] Kala Villalta MD , [facility] CPT-4: 10039 10/15/2020 [id number] EST. PATIENT, LEVEL IV Diagnosis: Rash and other nonspecific skin eruption[ICD10: R21] Diagnosis: Enlarged lymph node in neck[ICD10: R59.0] Kala Villalta MD, [facility] CPT-4: 28695 10/08/2020 ([id number]) 93406 EST. PATIENT, LEVEL III Diagnosis: Non-bullous impetigo[ICD10: L01.01] Diagnosis: Sinus congestion[ICD10: R09.81] Re elder MD, [facility] CPT-4: 98424 03/21/2020 ([id number]) 41878 EST. PATIENT, LEVEL III Diagnosis: Essential (primary) hypertension[ICD10: I10] Diagnosis: Vitamin B12 deficiency due to intestinal malabsorption[ICD10: E53.8] Diagnosis: Obesity due to excess calories[ICD10: E66.09] Re Villalta MD, [facility] CPT-4: 56044 01/30/2020 ([id number]) 18346 EST. PATIENT, LEVEL I Diagnosis: Weight gain[ICD10: R63.5] María Elena Villalta MD, [facility] CPT- 4: 98727 12/20/2019 ([id number]) Miscellaneous no charge Diagnosis: Weight gain[ICD10: R63.5] María Elena Villalta MD, [facility] CPT- 4: 53191 10/27/2019 ([id number]) 05523 EST. PATIENT, LEVEL IV Diagnosis: Essential (primary) hypertension[ICD10: I10] Diagnosis: Other acute sinusitis[ICD10: J01.80] Diagnosis: Acquired iron deficiency anemia due to decreased absorption[ICD10: D50.8] Diagnosis: Vitamin B12 deficiency due to intestinal malabsorption[ICD10: E53.8] Re Villalta MD, [facility] CPT-4: 67235 09/12/2019 55602 EST. PATIENT, LEVEL III Diagnosis: Influenza[ICD10: J11.1] Diagnosis: Rash[ICD10: R21] Kala Villalta MD, [facility] CPT-4: 54988 08/28/2019 ([id number]) 95968 EST. PATIENT, LEVEL IV Diagnosis: Essential (primary) hypertension[ICD10: I10] Diagnosis: Atrophy of thyroid (acquired)[ICD10: E03.4] Diagnosis: Generalized anxiety disorder[ICD10: F41.1] Re Villalta MD, [facility] CPT-4: 05145 08/15/2019 ([id number]) 80124 EST. PATIENT, LEVEL IV Diagnosis: Atrophy of thyroid (acquired)[ICD10: E03.4] Diagnosis: Generalized anxiety disorder[ICD10: F41.1] Diagnosis: Rosacea, acne[ICD10: L71.9] Diagnosis: Essential (primary) hypertension[ICD10: I10] María Elena Villalta MD, [facility] CPT-4: 19474 06/06/2019 ([id number]) 44911 EST. PATIENT, LEVEL IV Diagnosis: Excessive and frequent menstruation with regular cycle[ICD10: N92.0] Re Villalta MD, [facility] CPT-4: 25237 12/05/2018 97611 EST. PATIENT, LEVEL III Diagnosis: Other acute sinusitis[ICD10: J01.80] Diagnosis: Other allergic rhinitis[ICD10: J30.89] Kala Andino MD, [facility] CPT-4: 79315 11/15/2018 ([id number]) 53167 EST. PATIENT, LEVEL III Diagnosis: Essential (primary) hypertension[ICD10: I10] Diagnosis: Generalized anxiety disorder[ICD10: F41.1] María Elena Villalta MD, [facility] CPT-4: 66297 10/27/2018 ([id number]) PREV VISIT NEW AGE 40-64 Diagnosis: Encounter for general adult medical examination with abnormal findings[ICD10: Z00.01] María Elena Villalta MD, [facility] CPT-4: 59042 08/01/2018 Plan of Care Planned Activity Notes [...] -recommend Dr Chris or Dr Hart at [facility]- patient to call for consultation - she is also due for mammogram- orders sent to 04/29/2021 Appointment: Re Palmer WPtel: [phone] [phone] (15 min) Moderate 04/29/2021 Patient Education: Patient [...] dose. 02/03/2021 Appointment: María Elena Villalta WPtel: [phone] [phone] (15 min) Moderate 02/03/2021 Patient Education: Patient Medication Summary Completed 02/03/2021 Patient Education: Patient Medication Summary Completed 01/28/2021 Appointment: Nurse Visit 12/31/2020 Patient Education: Patient Medication Summary Completed 12/31/2020 Appointment: Nurse Visit 11/21/2020 Patient Education: Patient Medication Summary Completed 11/21/2020 Patient Education: Obesity Completed 0 11/21/2020 Appointment: María Elena Villalta WPtel: [phone] [facility] [place] (15 min) Moderate 10/30/2020 Visit Plan: [...] she had hormone labs done with the [employer] - we have some labs, but they do not show estrogen/fsh/lh, progesterone - we are going to re-request labs and if they have not been done, we will check hormones. Depression/anxiety - decrease lexapro to 1/2 tab x 3 days then stop and start on wellbutrin voltaren gel 1% apply to knees three times a day 10/23/2020 App[facility]ment: [facility] [phone] [facility] [place] (15 min) Moderate 10/23/2020 Patient Education: [...] concerns. 10/15/2020 [phone] [id number] ([facility] min) Complex 10/15/2020 Patient Education: Patient [...] indicated 10/08/2020 [facility]ment: [phone] [id number] [place] (30 min) Complex 10/08/2020 Patient Education: Patient Medication Summary Completed 10/08/2020 Visit Plan: Impetigo - rx for abx provid ed and instructed on use- call if rash does not resolve Sinus congestion- RX given to patient, sinus rinses also recommended. Call if symptoms do not show improvement. 03/21/2020 Appointment: Re Palmer WPtel: [phone] [phone] (15 min) Moderate 03/21/2020 Patient Education: Patient [...] weight check. 01/30/2020 Appointment: Re Palmer WPtel: [phone] (15 min) Moderate 01/30/2020 Patient Education: Patient Medication Summary Completed 01/30/2020 Visit Plan: Weight gain -okay for refill of phentermine 12/20/2019 Appointment: Nurse Visit 12/20/2019 Patient Education: Patient Medication Summary Completed 12/20/2019 Appointment: Nurse Visit 10/27/2019 Patient Education: Patient Medication Summary Completed 10/27/2019 Appointment: Lab Draw 09/15/2019 Patient Education: Patient Medication Summary Completed 09/15/2019 Appointment: Re Palmer WPtel: [facility] [place] [phone] (15 min) Moderate 09/12/2019 Patient Education: Patient [...] or concerns. 08/28/2019 Appointment: Kala Hair WPtel: [facility] (15 min) Moderate 08/28/2019 Patient Education: Patient [...] weight check. 08/15/2019 App[facility]ment[phone] (30 min) Complex 08/15/2019 Patient Education: Patient Medication Summary Completed 08/15/2019 App[facility]ment: [phone] (15 min) Moderate 07/10/2019 Visit Plan: Hypothyroidism [...] 06/06/2019 Appointment: María Elena Villalta WPtel: [phone] [facility] (15 min) Moderate 02/07/2019 Patient Education: Patient Medication Summary Completed 12/14/2018 Appointment: Re Palmer WPtel: [phone] [phone] (15 min) Moderate 12/05/2018 Patient Education: Patient [...] allergy spray. 11/15/2018 Appointment: Kala Hair WPtel: [phone] [facility] (30 min) Complex 11/15/2018 Patient Education: Patient [...] medications. 10/27/2018 Appointment: María Elena Villalta WPtel: [phone] [facility] (15 min) Moderate 10/27/2018 Patient Education: Patient Medication Summary Completed 10/27/2018 Appointment: María Elena Villalta WPtel: [phone] [phone] (15 min) Moderate 10/12/2018 Appointment: María Elena Villalta WPtel: [phone] [facility] (15 min) Moderate 09/26/2018 Visit Plan: Well [...] in 6 weeks for assessment 08/01/2018 Appointment: María [facility]el[phone] [facility] New Patient 08/01/2018 Patient Education: Patient Medication Summary Completed 08/01/2018 Instructions Comment Date [facility] [phone] Hart Mammogram Refill [...] -recommend Dr Chris or Dr Hart at [facility]- patient to call for consultation - she is also due for mammogram- orders sent to 04/29/2021 . Hypertension - well controlled - harjit [...] continue with bupropion at current dose. 02/03/2021 decrease lexapro to 1/2 tab x 3 [...] she had hormone labs done with the [employer] - we have some labs, but they do not show estrogen/fsh/lh, progesterone - we are going to re-request labs and if they have not been done, we will check hormones. Depression/anxiety - decrease lexapro to 1/2 tab x 3 days then stop and start on wellbutrin voltaren gel 1% apply to knees three times a day 10/23/2020 . Ongoing fatigue and joint pain - pt is to keep her appointment with Rheumatology - pt is to monitor symptoms and notify clinic if symptoms do not improve, if they worsen, or with any changes, questions, or concerns. 10/15/2020 . Rash - will send RX - pt is to monito r symptoms and notify clinic if symptoms do not improve, if they worsen, or with any changes, questions or concerns. Enlarged lymph nodes - will check labs - return to clinic in 1 week to monitor - will consider US if indicated 10/08/2020 . Impetigo - rx for abx provided and ins tructed on use- call if rash does not resolve Sinus congestion- RX given to patient, sinus rinses also recommended. Call if symptoms do not show improvement. 03/21/2020 . Hypertension - well controlled - harjit [...] in one month for weight check. 01/30/2020 . Weight gain -okay for refill of phente rmine 12/20/2019 . Influenza - pt started on tamiflu - pt to start on anti-inflammatories, tylenol and monitor symptoms. Pt to call if not improving. Pt to alert any close contacts as to illness. Rash - pt is to stay off contrave - pt is to notify clinic if symptoms do not improve, if they worsen, or with any changes, questions, or concerns. 08/28/2019 INCREASE AMLODIPINE TO 10MG DAILY CONTRAVE -THIS [...] in one month for weight check. 08/15/2019 extended release melatonin . Hypothyroidism - pt [...] three days weekly x 1 month. 06/06/2019 . Sinusitis - Pt has acute infection [...] in the nasal steroid allergy spray. 11/15/2018 extended release melatonin . Hypertension - well [...] exposure. No change in current medications. 10/27/2018 . Well Adult - pt was counseled [...] RTC in 6 weeks for assessment 08/01/2018 Medical Equipment No Medical Equipment data Health Concerns Section Health Concerns data not found Goals Section Goals data not found Interventions Section Interventions data not found Health Status Evaluations/Outcomes Section Health Status Evaluations/Outcomes data not found Advance Directives No Advance Directive data
[2021-07-06 16:51] LABS: BASOPHILS # (AUTO) 0.1 10^3/uL (0.0-0.1); BASOPHILS % (AUTO) 1 % (0-10); EOSINOPHILS # (AUTO) 0.2 10^3/uL (0.0-0.3); EOSINOPHILS % (AUTO) 2 % (0-10); HEMATOCRIT 42 % (35-52); HEMOGLOBIN 13.9 g/dL (11.5-16.0); LYMPHOCYTES # (AUTO) 2.4 10^3/uL (1.0-4.0); LYMPHOCYTES % (AUTO) 24 % (12-44); MEAN CORPUSCULAR HEMOGLOBIN 30 pg (25-34); MEAN CORPUSCULAR HGB CONC 34 g/dL (32-36); MEAN CORPUSCULAR VOLUME 90 fL (80-99); MEAN PLATELET VOLUME 10.3 fL (9.0-12.2); MONOCYTES # (AUTO) 1.2 10^3/uL (0.0-1.0); MONOCYTES % (AUTO) 12 % (0-12); NEUTROPHILS # (AUTO) 6.4 10^3/uL (1.8-7.8); NEUTROPHILS % (AUTO) 62 % (42-75); PLATELET COUNT 438 10^3/uL (130-400); WHITE BLOOD COUNT 10.3 10^3/uL (4.3-11.0)
[2021-07-06 16:57] LABS: BILIRUBIN,URINE NEGATIVE (NEGATIVE); CLARITY,URINE CLEAR; COLOR,URINE YELLOW; GLUCOSE, URINE (UA) NEGATIVE (NEGATIVE); KETONES,URINE NEGATIVE (NEGATIVE); LEUKOCYTE ESTERASE ,URINE NEGATIVE (NEGATIVE); NITRITE,URINE NEGATIVE (NEGATIVE); PH,URINE 5.5 (5-9); PROTEIN,URINE NEGATIVE (NEGATIVE)
[2021-07-06 17:04] LABS: BACTERIA,URINE NEGATIVE /HPF; RBC,URINE 0-2 /HPF; SQUAMOUS EPITHELIAL CELL,UR 0-2 /HPF; WBC,URINE 0-2 /HPF
[2021-07-06 17:45] LABS: ALBUMIN 3.8 GM/DL (3.2-4.5)
[2021-07-06 17:46] LABS: POTASSIUM 4.2 MMOL/L (3.6-5.0)
[2021-07-06 17:47] LABS: CALCIUM 8.5 MG/DL (8.5-10.1)
[2021-07-06 17:50] LABS: BILIRUBIN,TOTAL 0.3 MG/DL (0.1-1.0)
[2021-07-06 17:51] LABS: CREATININE SERUM 0.72 MG/DL (0.60-1.30)
--- NOTE | 2021-07-06 18:11 | ED General ---
General Chief Complaint: Trauma-Non Activation Stated Complaint: FALL/HIT HEAD/PASSED OUT/NAUSEA Nursing Triage Note: PT AMBULATE TO ROOM 07 WITH C/O LEFT FACE AND RIGHT ARM PAIN AFTER FALLING AT 0300 TODAY. PT REPORTS WAKING AT 0300 WITH ABD AND BACK PAIN AND WALKING TO THE BATHROOM. PT STATES SHE WOKE UP ON THE FLOOR WITH BLOOD ON THE FLOOR AROUND HER. PT DENIES ABD AND BACK PAIN AT THIS TIME. PT STATES THAT MEMBER OF FAMILY IS A PPAP COORDINATOR AND TOLD HER TO COME TO ED FOR EVALUATION. Source of Information: Patient, Family () Exam Limitations: No Limitations History of Present Illness Date Seen by Provider: Jul 06, 2021 Time Seen by Provider: 16:35 Initial Comments Patient is a 40-year-old female who presents to the emergency department with her today with a chief complaint of some facial pain and syncopal episode in the middle of the night. Patient states that she woke up somewhere around 1 to 1:30 AM had severe lower back pain across her hips that radiated into her suprapubic region. She states she felt the urge to have a bowel movement. She states she knows she made it into the bathroom and she thinks she remembers sitting on the toilet the next thing she knew she was on the floor. She woke up a short time later and was able to make it into her bedroom with her ., She had a bloody nose, injured her lower lip. She had a bump on the left side of her face. He states that she was a little confused. She went about the rest of her day had taken a little Tylenol. No further complaints of back pain or abdominal pain, no nausea. No chest pain, shortness of breath. No fever. No extremity injury. She came in tonight because her [id number] is a former medic and advised her to get "checked out". She currently has no complaints other than a mild headache. Status post hysterectomy. All other review of systems reviewed and negative except as stated. Timing/Duration: 12 Hours Severity: Mild Associated Systoms: Denies Symptoms Allergies and Home Medications Allergies Coded Allergies: No Known Drug Allergies (Unverified , 02/09/19) Patient Home Medication List Home Medication List Reviewed: Yes Alprazolam (Xanax) 0.5 Mg Tablet, 0.5 MG PO BID PRN for ANXIETY, (Reported) Entered as Reported by: DAIANA BILLINGS on 02/09/19 1344 Alprazolam (Alprazolam) 0.5 Mg Tablet, (Reported) Entered as Reported by: JIN HALE on 09/02/19 1212 Amlodipine Besylate (Amlodipine Besylate) 10 Mg Tablet, (Reported) Entered as Reported by: JIN HALE on 09/02/19 1212 Amoxicillin/Potassium Clav (Amox Tr-K Clv 500-125 mg Tab) 1 Each Tablet, (Reported) Entered as Reported by: JIN HALE on 09/02/19 1212 Butalb/Acetaminophen/Caffeine (Esgic 50-325-40 mg Tablet) 1 Each Tablet, 1 EACH PO Q4H PRN for headache Prescribed by: OUMOU ERNST on 09/02/19 1243 Escitalopram Oxalate (Lexapro) 10 Mg Tablet, 15 MG PO HS, (Reported) Entered as Reported by: DAIANA BILLINGS on 02/09/19 1344 Oseltamivir Phosphate (Oseltamivir Phosphate) 75 Mg Capsule, (Reported) Entered as Reported by: JIN HALE on 09/02/19 1212 Prednisone (Prednisone) 20 Mg Tab, (Reported) Entered as Reported by: JIN HALE on 09/02/19 1212 Review of Systems Review of Systems Constitutional: see HPI EENTM: mouth swelling Respiratory: no symptoms reported Cardiovascular: no symptoms reported Gastrointestinal: no symptoms reported Genitourinary: no symptoms reported : No Musculoskeletal: no symptoms reported Skin: no symptoms reported Psychiatric/Neurological: Headache (mild) All Other Systems Reviewed Negative Unless Noted: Yes Past Ezqlytt-Xionxx-Eyvido Hx Patient Social History Tobacco Use?: No Smoking Status: Never a Smoker Substance use?: No Alcohol Use?: Yes Alcohol Frequency: Once in a while Pt feels they are or have been: No Immunizations Up To Date First/Initial COVID19 Vaccinat: 09/2020 Second COVID19 Vaccination Ned: 10/2020 COVID19 Vaccine [employer] Consultant: MARCY Seasonal Allergies Seasonal Allergies: Yes (AT TIMES) Past Medical History Surgeries: Yes (GASTRIC BYPASS, BREAST AUGMENTATION, ABDOMINOPLASTY, DXLS) Respiratory: No Cardiac: Yes Neurological: No Genitourinary: No Gastrointestinal: No Musculoskeletal: Yes (EARLY ONSET OF OSTEOPENIA) Endocrine: Yes (USED TO TAKE THYROID MED) HEENT: No Cancer: No Psychosocial: Yes Anxiety Integumentary: No Blood Disorders: No Adverse Reaction/Blood Tranf: No Family Medical History Cardiovascular disease 19 FATHER Diabetes mellitus 19 MOTHER Hypertension 19 MOTHER Thyroid disease 19 MOTHER Physical Exam Vital Signs Vital Signs - First Documented 07/06/21 07/06/21 16:10 19:02 Temp 36.2 Pulse 69 Resp 17 B/P (MAP) 154/96 (115) Pulse Ox 98 O2 Delivery Room Air Capillary Refill : Less Than 3 Seconds Height, Weight, BMI Height: 5'3.00" Weight: 201lbs. 0.0oz. 91.737578no; 32.00 BMI Method: General Appearance: No Apparent Distress, WD/WN Eyes: Bilateral Eye Normal Inspection, Bilateral Eye PERRL, Bilateral Eye EOMI HEENT: PERRL/EOMI (no nystagmus), TMs Normal, Pharynx Normal, Other (Left lower lip small contusion slightly bluish in discoloration, small contusion left upper; small erythematous yashira at the zygoma.) Neck: Full Range of Motion, Normal Inspection, Non Tender, Supple Respiratory: Lungs Clear, Normal Breath Sounds, No Accessory Muscle Use, No Respiratory Distress Cardiovascular: Regular Rate, Rhythm, No Murmur, Normal Peripheral Pulses Gastrointestinal: Normal Bowel Sounds, Non Tender, Soft Back: Normal Inspection, No Vertebral Tenderness Extremity: Normal Capillary Refill, Normal Inspection, Normal Range of Motion, Non Tender, No Calf Tenderness Neurologic/Psychiatric: Alert, Oriented x3, No Motor/Sensory Deficits, Normal Mood/Affect, quality assurance director II-XII Norm as Tested, Other (No cerebellar findings. Normal gait. No ataxia.) Skin: Normal Color, Warm/Dry Progress/Results/Core Measures Suspected Sepsis SIRS Temperature: Pulse: 69 Respiratory Rate: 17 Laboratory Tests 07/06/21 16:25: White Blood Count 10.3 Blood Pressure 154 /96 Mean: 115 Laboratory Tests 07/06/21 16:25: Platelet Count 438H 07/06/21 17:29: Creatinine 0.72, Total Bilirubin 0.3 Results/Orders Lab Results Laboratory Tests Test 07/06/21 16:25 07/06/21 16:30 07/06/21 17:29 Range/Units White Blood Count 10.3 4.3-11.0 10^3/uL Red Blood Count 4.61 3.80-5.11 10^6/uL Hemoglobin 13.9 11.5-16.0 g/dL Hematocrit 42 35-52 % Mean Corpuscular Volume 90 80-99 fL Mean Corpuscular Hemoglobin 30 25-34 pg Mean Corpuscular Hemoglobin Concent 34 32-36 g/dL Red Cell Distribution Width 12.3 10.0-14.5 % Platelet Count 438 H 130-400 10^3/uL Mean Platelet Volume 10.3 9.0-12.2 fL Immature Granulocyte % (Auto) 0 % Neutrophils (%) (Auto) 62 42-75 % Lymphocytes (%) (Auto) 24 12-44 % Monocytes (%) (Auto) 12 0-12 % Eosinophils (%) (Auto) 2 0-10 % Basophils (%) (Auto) 1 0-10 % Neutrophils # (Auto) 6.4 1.8-7.8 10^3/uL Lymphocytes # (Auto) 2.4 1.0-4.0 10^3/uL Monocytes # (Auto) 1.2 H 0.0-1.0 10^3/uL Eosinophils # (Auto) 0.2 0.0-0.3 10^3/uL Basophils # (Auto) 0.1 0.0-0.1 10^3/uL Immature Granulocyte # (Auto) 0.0 0.0-0.1 10^3/uL Urine Color YELLOW Urine Clarity CLEAR Urine pH 5.5 5-9 Urine Specific [place] 1.025 H 1.016-1.022 Urine Protein NEGATIVE NEGATIVE Urine Glucose (UA) NEGATIVE NEGATIVE Urine Ketones NEGATIVE NEGATIVE Urine Nitrite NEGATIVE NEGATIVE Urine Bilirubin NEGATIVE NEGATIVE Urine Urobilinogen 0.2 < = 1.0 MG/DL Urine Leukocyte Esterase NEGATIVE NEGATIVE Urine RBC (Auto) 1+ H NEGATIVE Urine RBC 0-2 /HPF Urine WBC 0-2 /HPF Urine Squamous Epithelial Cells 0-2 /HPF Urine Renal Epithelial Cells NONE /HPF Urine Crystals NONE /LPF Urine Bacteria NEGATIVE /HPF Urine Casts NONE /LPF Urine Mucus NEGATIVE /LPF Urine Culture Indicated NO Sodium Level 138 135-145 MMOL/L Potassium Level 4.2 3.6-5.0 MMOL/L Chloride Level 106 98-107 MMOL/L Carbon Dioxide Level 20 L 21-32 MMOL/L Anion Gap 12 5-14 MMOL/L Blood Urea Nitrogen 12 7-18 MG/DL Creatinine 0.72 0.60-1.30 MG/DL Estimat Glomerular Filtration Rate 89 BUN/Creatinine Ratio 17 Glucose Level 86 70-105 MG/DL Calcium Level 8.5 8.5-10.1 MG/DL Corrected Calcium 8.7 8.5-10.1 MG/DL Total Bilirubin 0.3 0.1-1.0 MG/DL Aspartate Amino Transf (AST/SGOT) 18 5-34 U/L Alanine Aminotransferase (ALT/SGPT) 15 0-55 U/L Alkaline Phosphatase 76 40-136 U/L Total Protein 7.0 6.4-8.2 GM/DL Albumin 3.8 3.2-4.5 GM/DL My Orders Orders - BRENDA TOMAS MD Ed Iv/Invasive Line Start (07/06/21 16:43) Ekg Tracing (07/06/21 16:43) Cbc With Automated Diff (07/06/21 16:43) Comprehensive Metabolic Panel (07/06/21 16:43) Ua Culture If Indicated (07/06/21 16:43) Ct Head Wo (07/06/21 18:04) Acetaminophen Tablet (Tylenol Tablet) (07/06/21 18:15) Vital Signs/I&O 07/06/21 07/06/21 16:10 19:02 Temp 36.2 Pulse 69 65 Resp 17 17 B/P (MAP) 154/96 (115) 137/85 Pulse Ox 98 O2 Delivery Room Air Room Air Capillary Refill : Less Than 3 Seconds Blood Pressure Mean: 115 Progress Note : Time: 18:10 Progress Note Labs have been reviewed, everything is within normal limits except for trace hematuria. Patient had an EKG that is unremarkable. Will CT head without contrast. Recommend follow-up with Dr. Villalta first thing tomorrow which the patient is agreeable to. Disposition per Dr. Linares after CT ECG Initial ECG Impression Date: Jul 06, 2021 Initial ECG Impression Time: 17:25 Initial ECG Rate: 70 Initial ECG Rhythm: Normal Sinus Initial ECG Intervals: Normal Initial ECG Impression: Normal Diagnostic Imaging Diagonstic Imaging: CT Comments [facility] [place] NAME: JOE MCKEON [facility] REC#: [id number] PT STATUS: DEP ER : 1980 PHYSICIAN: BRENDA TOMAS MD ADMIT DATE: 07/06/21/ER Signed Date of Exam:07/06/21 CT HEAD WO PROCEDURE: CT head without contrast. TECHNIQUE: Multiple contiguous axial images were obtained through the brain without the use of intravenous contrast. Auto Exposure Controls were utilized during the CT exam to meet ALARA standards for radiation dose reduction. INDICATION: Head injury and pain. Syncope. COMPARISON: CT head without contrast 09/02/2019. FINDINGS: No intracranial hemorrhage, mass effect, hydrocephalus or extra-axial fluid collection. No CT evidence of a territorial infarction. Scalp contusion overlying the left frontal convexity. No fracture. Visualized paranasal sinuses and mastoids are clear. IMPRESSION: 1. Scalp contusion overlying the left frontal convexity. 2. No acute intracranial CT findings. No fracture. Dictated by: Dictated on workstation # [id number] Dict: 07/06/211831 Trans: 07/06/211909 PJ [id number] Interpreted by: CHRISTINA ROSSI MD Electronically signed by: CHRISTINA ROSSI MD 07/06/211909 Departure Impression Primary Impression: Syncope Qualified Codes: R55 - Syncope and collapse Additional Impression: Contusion of face Qualified Codes: S00.83XA - Contusion of other part of head, initial encounter Disposition: HOME, SELF-CARE Condition: Stable Departure-Patient Inst. Referrals: KONG VILLALTA MD (PCP/Family) Primary Care Physician Patient Instructions: Contusion (DC), Syncope (Fainting) (DC) Add. Discharge Instructions: Drink plenty of fluids to stay well-hydrated. Continue to take extra strength Tylenol 2 tablets every 6 hours as needed for aches and pains. Please call Dr. Villalta's office first thing in the morning to schedule a follow-up. Come back to the emergency department if you have any other new, concerning symptoms specifically chest pain, fever, shortness of breath, vomiting or other emergent concerns. Copy Copies To 1: KONG VILLALTA MD, KATHRYN M MD Jul 06, 2021 18:11
[2021-07-06] MEDS ORDERED: ACETAMINOPHEN 500 MG TAB (TYLENOL) PO ONE (18:15)
--- NOTE | 2021-07-06 18:37 | Diagnostic Imaging Report ---
PROCEDURE: CT head without contrast. TECHNIQUE: Multiple contiguous axial images were obtained through the brain without the use of intravenous contrast. Auto Exposure Controls were utilized during the CT exam to meet ALARA standards for radiation dose reduction. INDICATION: Head injury and pain. Syncope. COMPARISON: CT head without contrast 09/02/2019. FINDINGS: No intracranial hemorrhage, mass effect, hydrocephalus or extra-axial fluid collection. No CT evidence of a territorial infarction. Scalp contusion overlying the left frontal convexity. No fracture. Visualized paranasal sinuses and mastoids are clear. IMPRESSION: 1. Scalp contusion overlying the left frontal convexity. 2. No acute intracranial CT findings. No fracture. Dictated by: Dictated on workstation # [id number]
[2021-07-06 19:02] VITALS: BP 137/85
== END 2021-07-06 19:02 | disposition home or self-care (01) ==
LOC: EDUNIT# 15:45 → ER 15:47
DX: S00.531A Contusion of lip, initial encounter (principal); R55 Syncope and collapse; F41.9 Anxiety disorder, unspecified; Z79.899 Other long term (current) drug therapy; X58.XXXA Exposure to other specified factors, initial encounter
CPT/HCPCS: 36415; 70450; 80053; 81000; 85025; 93005

== ENCOUNTER → 2021-07-09 | Outpatient (CLI) | payer BC ==
--- NOTE | 2021-07-09 12:20 | Diagnostic Imaging Report ---
INDICATION: Hematuria KUB 11:10 AM Lung bases are clear. Gallbladder surgically absent. There are surgical avila in the left upper quadrant of the abdomen from prior surgery. Bowel gas pattern is normal. There are no pathologic masses or calcifications. IMPRESSION: Postsurgical changes in the abdomen. No acute abnormality seen. Dictated by: Dictated on workstation # [id number]
== END ==
LOC: RAD 10:44
PROVIDERS: ATTEND Family Medicine
DX: R31.9 Hematuria, unspecified (principal); R10.9 Unspecified abdominal pain
CPT/HCPCS: 74018

== ENCOUNTER → 2021-07-11 | Outpatient (CLI) | payer BC ==
[~2021-07-11] MED LIST changes: +HOLD METFORMIN - RECEIVED CONTRAST 20 ML VIAL IV SCH; +IOHEXOL 350 MG/ML 150 ML (OMNIPAQUE 350) VIAL IV ONE; +NS 100 ML (IVPB) BAG IV ONE
--- NOTE | 2021-07-11 08:38 | Diagnostic Imaging Report ---
PROCEDURE: CT abdomen and pelvis with contrast. TECHNIQUE: Multiple contiguous axial images were obtained through the abdomen and pelvis after administration of intravenous contrast. Auto Exposure Controls were utilized during the CT exam to meet ALARA standards for radiation dose reduction. All CT scans use one or more of the following dose optimizing techniques: automated exposure control, MA and/or KvP adjustment based on patient size and exam type or iterative reconstruction. INDICATION: Abdominal pelvic pain, hematuria. COMPARISON: There are no prior CT abdomen or pelvis examinations available for comparison. There is no evidence for nephrolithiasis or urolithiasis and the kidneys do not appear to be obstructed. There is no solid renal mass noted either. The urinary bladder is only partially filled and consequently not well-evaluated. There is no pelvic mass or free fluid collection noted. The uterus is surgically absent. The appendix was not particularly well visualized but there are no indirect signs of acute appendicitis. There are a few fluid-filled segments of small bowel low in the pelvis. These are nonspecific. There is no evidence for a bowel obstruction. There does appear to be a moderate amount of fecal material throughout the colon. The uterus and gallbladder are surgically absent. In addition, there are postsurgical changes involving the stomach. The liver is homogeneous and not enlarged. The spleen, pancreas, adrenals, aorta and inferior vena cava are unremarkable for an acute abnormality. There is some mixed density within the inferior vena cava. This is probably related to a flow phenomena and not to thrombus formation. The lung bases are clear. There are bilateral breast implants in place. The implants where visualized are intact. The bone windows show no evidence for a fracture or for a destructive lesion. IMPRESSION: 1. There is no evidence for an acute abnormality of the abdomen or pelvis. In particular, there is no sign of nephrolithiasis or urolithiasis. 2. There are postsurgical changes involving the stomach consistent with a prior gastric bypass procedure. The gallbladder and uterus are also surgically absent. Dictated by: Dictated on workstation # [id number]
== END ==
LOC: RAD 07:45
PROVIDERS: ATTEND Family Medicine
DX: R31.9 Hematuria, unspecified (principal); R10.2 Pelvic and perineal pain; R10.9 Unspecified abdominal pain; Z90.49 Acquired absence of other specified parts of digestive tract; Z90.710 Acquired absence of both cervix and uterus; Z98.84 Bariatric surgery status
CPT/HCPCS: 74177

== ENCOUNTER → 2021-10-30 | Outpatient (CLI) | payer BC ==
[~2021-10-30] MED LIST changes: -HOLD METFORMIN - RECEIVED CONTRAST 20 ML VIAL IV SCH; -IOHEXOL 350 MG/ML 150 ML (OMNIPAQUE 350) VIAL IV ONE; -NS 100 ML (IVPB) BAG IV ONE
--- NOTE | 2021-10-30 18:20 | Diagnostic Imaging Report ---
CLINICAL INDICATIONS: Patient with dizziness and disequilibrium. EXAM: MRI of the brain performed without IV contrast. Sequences include sagittal T1, axial T2, axial flair, axial gradient echo, DWI, ADC map, and axial T1. COMPARISON: Head CT without contrast dated 07/06/2021. FINDINGS: There is no evidence of acute cerebral infarct, intracranial hemorrhage, or gross mass effect. The brain parenchymal volume appears appropriate for patient's age. There is normal martin-white matter distinction. There is no significant midline shift or herniation. There is no evidence of hydrocephalus. The basal cisterns are unremarkable. The skull, extracranial soft tissue, and orbits are unremarkable. There is mild mucosal thickening involving the right maxillary sinus. There is minimal fluid in both mastoid air cells. IMPRESSION: There is mild paranasal sinus disease and minimal fluid in both mastoid air cells. Otherwise, unremarkable MRI of the brain. Dictated by: Dictated on workstation # [id number]
== END ==
LOC: RAD 17:03
PROVIDERS: ATTEND Nurse Practitioner Family
DX: J34.89 Other specified disorders of nose and nasal sinuses (principal)
CPT/HCPCS: 70551

== ENCOUNTER → 2022-03-04 | Outpatient (CLI) | payer BC ==
[2022-03-04 11:55] VITALS: BP 130/76
--- NOTE | 2022-03-04 17:25 | Cardiology Stress Test Report ---
Stress Test Report Date of Procedure/Referring: Date of Procedure: Mar 04, 2022 PCP Kong Villalta MD Admitting Physician Admitting Physician: Attending Physician: Margarita Talley MD Indications: CP Baseline Heart Rate: 65 Baseline Blood Pressure: Blood Pressure Systolic: 130 Blood Pressure Diastolic: 76 Baseline EKG: Baseline EKG: NSR Summary/Conclusion: Summary: In summary, the patient started exercising with a baseline heart rate, blood pressure and EKG mentioned above Patient was able to exercise for a total of 9 minutes on Florentin protocol, METs 10.5 Maximum heart rate 137 Maximum blood pressure 161/81 Stress EKG, Minimal nondiagnostic changes Recovery EKG , Return to baseline Conclusion: 1. Good exercise tolerance for a total of 9 minutes on Florentin protocol, 10.5 METs, achieving 77 percent of maximum expected heart rate 2. Minimal nondiagnostic EKG changes with exercise returned to baseline during recovery 3. No arrhythmia was noted Copy Copies To 1: KONG VILLALTA MD, BASHAR J MD Mar 04, 2022 17:25
== END ==
LOC: CARD 11:30
PROVIDERS: ATTEND Internal Medicine Cardiovascular Disease
DX: I25.10 Atherosclerotic heart disease of native coronary artery without angina pectoris (principal); I10 Essential (primary) hypertension
CPT/HCPCS: 93017; 93306